=== PATIENT | male | born 1990 | race Caucasian/White ===

== ENCOUNTER 2023-06-16 18:04 | Inpatient (IN) | payer OTHER, SELFPAY ==
[2023-06-16 18:06] VITALS: BMI 26.8
[2023-06-16 18:15] VITALS: BP 151/70; PULSE 75; RESP 16; TEMP 36.6; O2SAT 97
[2023-06-16] MEDS: LORazepam 1 MG TABLET 2 MG PO (19:23)
[2023-06-16] MEDS: busPIRone HCl 10 MG TABLET PO (19:50)
[2023-06-16] MEDS: cloNIDine HCL 0.1 MG TABLET PO (19:50)
--- NOTE | 2023-06-16 23:50 | PC.NURSE ---
PT is a 32 year old male that arrived on this unit at 18:15 from via stretcher from [facility] and was placed on 5 min safety checks. Legal status: conditional voluntary. PT reports being discharged from [facility] 2 days ago and feels they did not help him. PT reports anxiety/depression and substance use of crack cocaine and alcohol.(TOX + for buprenorphine, fentanyl, cocaine and THC) PT began to feel suicidal related to many life stresses including a recent break up and his father being diagnosed with cancer. PT's housing is unstable as he goes back and forth between family and friends. PT reports daily use of crack cocaine as well as 3 pints of liquor per day for many months (withdrawal protocol ordered). PT does not have any psych providers. PT reports being on probation but would not elaborate on legal issues. PT reports medical hx of hypertension for which he does take medication daily. COVID NEG. All legals signed, tx plan completed, med rec completed, and admission orders obtained. Promote safety and initiate plan of care. Skin check completed by Juan Jose Rivera RN. No acute findings.
[2023-06-17] MEDS: traZODone HCL 50 MG TABLET PO ×3 (00:59→23:46)
[2023-06-17] MEDS: hydrOXYzine HCL 25 MG TABLET PO (00:59)
[2023-06-17] MEDS: Nicotine Polacrilex Lozenge 4 MG LOZENGE BUCCAL ×8 (00:59→23:46)
[2023-06-17 08:15] VITALS: BP 142/88; PULSE 74; RESP 16; TEMP 36.8; O2SAT 99
[2023-06-17] MEDS: cloNIDine HCL 0.1 MG TABLET PO ×2 (08:15→21:02)
[2023-06-17] MEDS: busPIRone HCl 10 MG TABLET PO ×2 (08:15→21:02)
[2023-06-17] MEDS: lisinopriL 5 MG TABLET PO (08:15)
[2023-06-17] MEDS: Nicotine 21 MG PATCH.TD24 TRANSDERMA (08:15)
[2023-06-17] MEDS: LORazepam 0.5 MG TABLET PO (08:32)
[2023-06-17 09:18] LABS: Alanine Aminotransferase 57 U/L (0-40); Albumin Level 3.8 g/dL (3.5-5.0); Alkaline Phosphatase 99 U/L (39-117); Anion Gap 13 (12-20); Aspartate Amino Transferase 45 U/L (5-37); Bilirubin Total 0.2 mg/dL (0.0-1.0); Blood Urea Nitrogen 11 mg/dL (9-16); Calcium 9.1 mg/dL (8.4-10.2); Carbon Dioxide 29 mmol/L (22-29); Chloride 103 mmol/L (96-108); Cholesterol 167 mg/dL (<200); Creatinine Clr Calc Pharmacy 124.7; Estimated Glomerular Filt Rate > 60; Glucose Fasting 91 mg/dL (60-99); HDL Cholesterol 39 mg/dL (>40); LDL Cholesterol Calculated 109 mg/dL (<100); Potassium 4.1 mmol/L (3.3-5.1); Sodium 141 mmol/L (135-145); Total Protein 6.7 g/dL (6.5-8.0); Triglycerides 95 mg/dL (<150)
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
[2023-06-17] MEDS: LORazepam 1 MG TABLET PO ×4 (09:47→23:46)
--- NOTE | 2023-06-17 11:14 | P.CONHOSP_ITS ---
History of Present Illness Data of Consult Service Date: 06/17/23 Primary Care Provider: Unknown Physician HPI Reason for consult: Admission H&P Pt is a 32-year-old male with a PMH significant for?HTN, WPW, polysubstance use disorder, and depression who is admitted to [facility] psychiatry unit for increasing depression and vague SI without specific plan. Medical consult for admission H&P. ? Patient has no acute medical complaints at this time. Denies chest pain/pressure, palpitations. No SOB. Denies fever, chills, nausea, vomiting, or abdominal pain. 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 Not currently on any medications for it, and states he has never experienced any symptoms from it. Admits to recent crack cocaine use and drinking 2.5 pints of alcohol daily. Currently denies any withdrawal symptoms. Labs reviewed, grossly unremarkable. Review of Systems 2 Review of Systems: Pt has no acute medical complaints at this time [facility] Social History Household Members: Family Housing: Other Do you presently have visiting nurse or other home services: No Patient Tobacco Use Status: Current everyday Tobacco user Tobacco use type: Cigarette Cigarette Packs Per Day: 2 Cigarettes Per Day: 40.0 Smoked in Last 30 Days: Yes e-Cigarette/Vaping Use: Never Used Patient Interested in Nicotine Replacement: Yes Patient Given Instructions on How to Stop Smoking: Yes Date Education Initiated: 06/16/23 Second Hand Smoke Exposure: No Use of substances other than those prescribed or required for medical reasons: Yes Substance Use Type: Crack/Cocaine and Marijuana Substance Use Frequency: Chronic Longstanding Last Used Substance: Just Prior to Admission Currently Displaying Signs/Symptoms of Drug Intoxication Withdrawal: No Any prior treatment program specific to substance use: No Have you been hit, kicked, punched, or otherwise hurt by someone within the past year? If so, by whom?: No Do you feel safe in your current relationship?: No Current Relationship Is there a partner from a previous relationship who is making you feel unsafe now?: No Are you made to feel afraid or neglected: No Advance Directives: No Advance Directives Information Provided: Yes Do you have thoughts of harming others: None Do you have a plan to hurt others: No Plan Recently lost weight without trying: Yes How much weight loss: 34pounds or more Eating poorly because of decreased appetite: No Nutrition screen score: 6 Nutrition Risks: No Nutritional Risk Poor oral hygiene: No Meds Allergies Allergy/AdvReac Type Severity Reaction Status Date / Time No Known Allergies Allergy Verified 06/16/23 15:50 Active Medications: Current Medications Acetaminophen (Acetaminophen 325 Mg Tablet) 650 mg PO Q6H PRN PRN Reason: Headache/Pain Mild Scale (1-3) Al Hydroxide/Mg Hydroxide (Magnesium Hydrox/Alum Hydrox 30 Ml Oral.Susp) 30 ml PO Q6H PRN PRN Reason: Heartburn/Nausea Buspirone HCl (Buspirone Hcl 10 Mg Tablet) 10 mg PO BID [facility] Last Admin: 06/17/23 08:15 Dose: 10 mg Clonidine HCl (Clonidine Hcl 0.1 Mg Tablet) 0.1 mg PO TID [facility]; Protocol Last Admin: 06/17/23 08:15 Dose: 0.1 mg Hydroxyzine HCl (Hydroxyzine Hcl 25 Mg Tablet) 25 mg PO Q6H PRN PRN Reason: Anxiety Last Admin: 06/17/23 00:59 Dose: 25 mg Lisinopril (Lisinopril 5 Mg Tablet) 5 mg PO DAILY [facility]; Protocol Last Admin: 06/17/23 08:15 Dose: 5 mg Lorazepam (Lorazepam 1 Mg Tablet) 1 mg PO Q2H PRN PRN Reason: CIWA 6-10 Last Admin: 06/17/23 09:47 Dose: 1 mg Lorazepam (Lorazepam 1 Mg Tablet) 2 mg PO Q2H PRN PRN Reason: CIWA 11 and above Magnesium Hydroxide (Milk Of Magnesia 30 Ml Oral.Susp) 30 ml PO DAILY PRN PRN Reason: Constipation Nicotine (Nicotine 21 Mg Patch.Td24) 21 mg TRANSDERMA DAILY [facility] Last Admin: 06/17/23 08:15 Dose: 21 mg Nicotine Polacrilex (Nicotine Polacrilex Lozenge 4 Mg Lozenge) 4 mg BUCCAL Q2H PRN PRN Reason: smoking craving Last Admin: 06/17/23 09:47 Dose: 4 mg Non-Formulary Medication (Atomoxetine) 40 mg PO DAILY [facility] Trazodone HCl (Trazodone Hcl 50 Mg Tablet) 50 mg PO BEDTIME MRX1 PRN PRN Reason: Insomnia Last Admin: 06/17/23 00:59 Dose: 50 mg Home Medications Medication Instructions Recorded Confirmed Last Taken Type atomoxetine 40 mg capsule 40 mg PO DAILY 06/16/23 06/16/23 06/16/23 09:00 History buprenorphine 300 mg/1.5 mL 300 mg subcut QMONTH 06/16/23 06/16/23 06/10/23 09:00 History solution,exten.rel.subcutaneous syringe (Sublocade) buspirone 10 mg tablet 10 mg PO BID 06/16/23 06/16/23 06/16/23 09:00 History 10 mg clonidine HCl 0.1 mg tablet 0.1 mg PO TID 06/16/23 06/16/23 06/16/23 15:00 History 0.1mg lisinopril 5 mg tablet 5 mg PO DAILY blood pressure 06/16/23 06/16/23 06/16/23 09:00 History 5 mg Physical Exam 2 Vital Signs and Narrative: Vital Signs: Last Vital Signs Temp 98.3 F 06/17/23 08:15 Pulse 74 06/17/23 08:15 Resp 16 06/17/23 08:15 BP 142/88 H 06/17/23 08:15 Pulse Ox 99 06/17/23 08:15 O2 Del Method Room Air 06/17/23 08:15 BMI result Body Mass Index 26.8 Constitutional: Alert, in no acute distress. Mental Status: Oriented to person, place and time. Eyes: Pupils are equal, round, and reactive to light. Ear, Nose, and Throat: Oropharynx clear, mucous membranes moist. Ears and nose without deformities. Trachea midline. Respiratory: Clear to auscultation bilaterally. No wheezing, rales, or rhonchi. Cardiovascular: S1, S2 regular. No murmurs, rubs, or gallops. Gastrointestinal: Abdomen soft, non-tender, non-distended. Normal bowel sounds. Neurologic: Cranial nerves II-XII are grossly intact bilaterally. No focal neurological deficits. Moves all extremities spontaneously. No tremors noted. Skin: No rashes or lesions noted. Musculoskeletal: No cyanosis or clubbing. Extremities: No edema. Psychiatric: Normal mood and affect. Results Labs 06/17/23 08:08 Labs: Laboratory Results - last 24 hr 06/17/23 08:08 Anion Gap 13 Estim Creat Clear Calc 124.7 Estimated GFR > 60 Fasting Glucose 91 Calcium 9.1 Total Bilirubin 0.2 AST 45 H ALT 57 H Alkaline Phosphatase 99 Total Protein 6.7 Albumin 3.8 Triglycerides 95 Cholesterol 167 LDL Cholesterol, Calc 109 H HDL Cholesterol 39 L Assessment and Plan (1) Medical clearance for psychiatric admission: Status: Acute Plan Pt is a 32-year-old male with a PMH significant for?HTN, WPW, polysubstance use disorder, and depression who is admitted to [facility] psychiatry unit for increasing depression and vague SI without specific plan. Medical consult for admission H&P. ? Mood disorder Plan as per psychiatry Polysubstance use disorder Recent crack cocaine use, drinks 2.5 pints of alcohol daily CIWA scale Ativan prn per protocol Plan as per psychiatry HTN Continue lisinopril WPW Pt reports being diagnosed at age 19 Denies being on meds, ever having symptoms No further workup or treatment indicated at this time F/U outpatient with PCP/cardiology Thank you for allowing us to participate in the care of this patient. Signing off at this time. Please let us know if there are any acute complaints or questions. Time Spent With Patient Time: Total time managing care of this patient today ____ minutes.
[2023-06-17] MEDS: Gabapentin 300 MG CAPSULE PO ×2 (16:21→21:01)
[2023-06-17] MEDS: LORazepam 1 MG TABLET 2 MG PO (16:22)
[2023-06-17 18:00] VITALS: BP 145/60; PULSE 87; TEMP 36.5; O2SAT 96
[2023-06-17 21:00] VITALS: BP 132/67; PULSE 88
[2023-06-18] MEDS: Nicotine Polacrilex Lozenge 4 MG LOZENGE BUCCAL ×6 (01:59→21:51)
[2023-06-18] MEDS: hydrOXYzine HCL 25 MG TABLET PO (02:00)
[2023-06-18 08:45] VITALS: BP 112/60; PULSE 71; RESP 18; TEMP 36.1; O2SAT 96
[2023-06-18] MEDS: Nicotine 21 MG PATCH.TD24 TRANSDERMA (08:47)
[2023-06-18] MEDS: Venlafaxine HCl ER 37.5 MG CAP.ER.24H PO (08:48)
[2023-06-18] MEDS: cloNIDine HCL 0.1 MG TABLET PO ×3 (08:48→20:09)
[2023-06-18] MEDS: LORazepam 1 MG TABLET PO ×5 (08:48→20:09)
[2023-06-18] MEDS: busPIRone HCl 10 MG TABLET PO ×2 (08:48→20:09)
[2023-06-18] MEDS: Gabapentin 300 MG CAPSULE PO ×3 (08:48→20:09)
[2023-06-18] MEDS: lisinopriL 5 MG TABLET PO (08:48)
[2023-06-18 14:50] VITALS: BP 129/60; PULSE 76
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
[2023-06-18 20:06] VITALS: BP 129/65; PULSE 76; TEMP 36.4
[2023-06-18] MEDS: traZODone HCL 50 MG TABLET PO ×2 (20:09→21:51)
[2023-06-19 08:55] VITALS: BP 105/60; PULSE 63; RESP 18; TEMP 36.2; O2SAT 95
[2023-06-19] MEDS: busPIRone HCl 10 MG TABLET PO ×2 (08:59→19:59)
[2023-06-19] MEDS: Venlafaxine HCl ER 37.5 MG CAP.ER.24H PO (08:59)
[2023-06-19] MEDS: Gabapentin 300 MG CAPSULE PO ×3 (08:59→19:59)
[2023-06-19] MEDS: Nicotine 21 MG PATCH.TD24 TRANSDERMA (08:59)
[2023-06-19] MEDS: LORazepam 1 MG TABLET PO ×4 (08:59→19:59)
[2023-06-19] MEDS: lisinopriL 5 MG TABLET PO (08:59)
[2023-06-19] MEDS: cloNIDine HCL 0.1 MG TABLET PO ×3 (09:04→19:58)
--- NOTE | 2023-06-19 10:40 | P.PNPSI_ITS ---
Subjective Subjective Date of Service: 06/19/23 Reason For Visit: Depression Interim History: pt tolerating effexor without side effects; CIWA scale and ativan taper benefitting- no significant WD smptoms. He is eating and attending to ADLs Worried about legal; no SI Medication Compliance: Yes Side effects from medications: No Attending Groups: Intermittent Review of Systems Acute medical concerns: No Medical Review of Systems: unchanged Review of Systems Review of Systems Pt has no acute medical complaints at this time Mental Status Exam Mental Status Exam Narrative: Pt is alert and oriented; behavior is cooperative, and calm, resting in bed; patient is not in distress; dressed in casual attire, multiple tattoos on his arms, cleanly trimmed vernon and hair and adequate hygiene; mood is described as depressed and affect congruent, downcast; eye contact appropriate; Speech is normal rate, volume and prosody and not pressured; psychomotor retardation present; thought process is organized and goal directed; Thought content is on tx; otherwise pertinent to relevant topics and without any delusional content, paranoid ideations or grandiosity; intermittent passive SI; no HI.. There is no evidence of perceptual disturbance and denies AVH. Patients insight and judgment appear impaired Diagnostics Vital Signs (24Hr): Vital Signs - 24 hr 06/18/23 14:50 06/18/23 20:06 06/19/23 08:55 Temperature 97.6 F 97.1 F Pulse Rate 76 76 63 Respiratory Rate 18 Blood Pressure 129/60 129/65 105/60 Pulse Oximetry 95 Oxygen Delivery Method Room Air BMI result Body Mass Index 26.8 Labs 06/17/23 08:08 Medications Medications Current Medications Acetaminophen (Acetaminophen 325 Mg Tablet) 650 mg PO Q6H PRN PRN Reason: Headache/Pain Mild Scale (1-3) Al Hydroxide/Mg Hydroxide (Magnesium Hydrox/Alum Hydrox 30 Ml Oral.Susp) 30 ml PO Q6H PRN PRN Reason: Heartburn/Nausea Buspirone HCl (Buspirone Hcl 10 Mg Tablet) 10 mg PO BID COUNTS INCLUDE 234 BEDS AT THE [facility] Last Admin: 06/19/23 08:59 Dose: 10 mg Clonidine HCl (Clonidine Hcl 0.1 Mg Tablet) 0.1 mg PO TID COUNTS INCLUDE 234 BEDS AT THE [facility]; Protocol Last Admin: 06/19/23 09:04 Dose: 0.1 mg Gabapentin (Gabapentin 300 Mg Capsule) 300 mg PO TID COUNTS INCLUDE 234 BEDS AT THE [facility] Last Admin: 06/19/23 08:59 Dose: 300 mg Hydroxyzine HCl (Hydroxyzine Hcl 25 Mg Tablet) 25 mg PO Q6H PRN PRN Reason: Anxiety Last Admin: 06/18/23 02:00 Dose: 25 mg Lisinopril (Lisinopril 5 Mg Tablet) 5 mg PO DAILY COUNTS INCLUDE 234 BEDS AT THE [facility]; Protocol Last Admin: 06/19/23 08:59 Dose: 5 mg Lorazepam (Lorazepam 1 Mg Tablet) 1 mg PO Q2H PRN PRN Reason: CIWA 6-10 Last Admin: 06/18/23 18:00 Dose: 1 mg Lorazepam (Lorazepam 1 Mg Tablet) 2 mg PO Q2H PRN PRN Reason: CIWA 11 and above Last Admin: 06/17/23 16:22 Dose: 2 mg Lorazepam (Lorazepam 1 Mg Tablet) 1 mg PO TID COUNTS INCLUDE 234 BEDS AT THE [facility] Stop: 06/19/23 23:00 Last Admin: 06/19/23 08:59 Dose: 1 mg Lorazepam (Lorazepam 1 Mg Tablet) 1 mg PO BID COUNTS INCLUDE 234 BEDS AT THE [facility] Stop: 06/21/23 23:00 Magnesium Hydroxide (Milk Of Magnesia 30 Ml Oral.Susp) 30 ml PO DAILY PRN PRN Reason: Constipation Nicotine (Nicotine 21 Mg Patch.Td24) 21 mg TRANSDERMA DAILY COUNTS INCLUDE 234 BEDS AT THE [facility] Last Admin: 06/19/23 08:59 Dose: 21 mg Nicotine Polacrilex (Nicotine Polacrilex Lozenge 4 Mg Lozenge) 4 mg BUCCAL Q2H PRN PRN Reason: smoking craving Last Admin: 06/18/23 21:51 Dose: 4 mg Trazodone HCl (Trazodone Hcl 50 Mg Tablet) 50 mg PO BEDTIME MRX1 PRN PRN Reason: Insomnia Last Admin: 06/18/23 21:51 Dose: 50 mg Venlafaxine HCl (Venlafaxine Hcl Er 37.5 Mg Cap.Er.24h) 37.5 mg PO DAILY COUNTS INCLUDE 234 BEDS AT THE [facility] Last Admin: 06/19/23 08:59 Dose: 37.5 mg Allergies Allergies Allergy/AdvReac Type Severity Reaction Status Date / Time No Known Allergies Allergy Verified 06/16/23 15:50 Assessment & Plan Assessment & Plan (1) MDD (major depressive disorder), recurrent severe, without psychosis: Status: Acute Code(s): F33.2 - Major depressive disorder, recurrent severe without psychotic features (2) PTSD (post-traumatic stress disorder): Status: Acute Code(s): F43.10 - Post-traumatic stress disorder, unspecified (3) Alcohol dependence: Status: Acute Code(s): F10.20 - Alcohol dependence, uncomplicated (4) Cocaine use disorder: Status: Acute Code(s): F14.10 - Cocaine abuse, uncomplicated Plan Patient is a 32-year-old male with history of depression, anxiety PTSD, alcohol and cocaine dependence, HTN, WPW (by history) recently discharged from [facility], who self presents for depression with SI and the face of no medication and ongoing chronic severe substance abuse. -patient has had some medication trials even during periods of sobriety, while in [facility] and says little has worked; however when he was out of [facility] and sober for about 4 months, he said his mood was good and anxiety low -seems that much of his depression and anxiety is compounded by substance abuse; though sober and [facility], on going, exacerbated and significant PTSD symptoms may have proved a barrier to medications effectiveness -will detox from alcohol; will start on venlafaxine (reviewed risks/side effects which patient understands and agrees to). May consider Lamictal. For full recovery patient needs sobriety in therapy and removal from gang affiliation Plan: CV Q 15 minute checks CIWA with p.r.n. Ativan Scheduled Ativan with build in taper to help with withdrawal Scheduled gabapentin 300 mg t.i.d.; will consider whether not to taper or continue if helps with anxiety Continue clonidine 0.1 mg t.i.d. Continue BuSpar 10 mg b.i.d. Continue lisinopril 5 mg daily START venlafaxine 37.5 mg daily for depression; will titrate Will consider Lamictal since can help with both PTSD, anxiety and depression; patient says that he is consistent with taking medications as they are prescribed DC atomoxetine; patient started at [facility] currently does not want Seems that patient Recently received sublaCade 300 mg on 06/10 Obtain collateral; dispo planning 06/18 continue above treatmetn plan 06/19 continue treatmetn plan consider increase effexor Patient educated on: diagnosis, medication risk/benefits and therapeutic strategies Informed Consent: further education needed Reason for continued inpatient stay Substantial Risk for: harm to self, inability to function and rapid decompensation Time Spent With Patient Time: Total time managing care of this patient today ____ minutes.
[2023-06-19] MEDS: Nicotine Polacrilex Lozenge 4 MG LOZENGE BUCCAL ×3 (15:05→22:10)
[2023-06-19 19:49] VITALS: BP 144/70; PULSE 78; TEMP 36.1
[2023-06-19] MEDS: traZODone HCL 50 MG TABLET PO ×2 (19:59→22:10)
[2023-06-20] MEDS: LORazepam 1 MG TABLET PO ×9 (01:22→20:17)
[2023-06-20] MEDS: Nicotine Polacrilex Lozenge 4 MG LOZENGE BUCCAL ×3 (01:22→08:57)
[2023-06-20] MEDS: cloNIDine HCL 0.1 MG TABLET PO ×3 (08:38→19:56)
[2023-06-20] MEDS: Gabapentin 300 MG CAPSULE PO ×3 (08:38→19:56)
[2023-06-20] MEDS: Venlafaxine HCl ER 37.5 MG CAP.ER.24H PO (08:38)
[2023-06-20] MEDS: Nicotine 21 MG PATCH.TD24 TRANSDERMA (08:38)
[2023-06-20] MEDS: lisinopriL 5 MG TABLET PO (08:38)
[2023-06-20] MEDS: busPIRone HCl 10 MG TABLET PO ×2 (08:38→19:56)
[2023-06-20 08:47] VITALS: BP 113/52; PULSE 62; RESP 16; TEMP 36.2; O2SAT 95
--- NOTE | 2023-06-20 09:29 | P.PNPSI_ITS ---
Subjective Subjective Date of Service: 06/20/23 Reason For Visit: Depression Subjective Notes: Conditional Voluntary Interim History: Reviewed in team and . Patient keeping to self guarded, reports feeling anxious and depressed today. Pt stated, I'm still having some withdrawal symptoms but it's not too bad . Denies SI/HI/VH/AH. He reports he would like to attend PHP after discharge. flying squad worker notified. Medication Compliance: Yes Side effects from medications: No Attending Groups: No Review of Systems Constitutional: Reports as per HPI Eyes: Reports as per HPI Reports as per HPI Cardiovascular: Reports as per HPI Respiratory: Reports as per HPI Gastrointestinal: Reports as per HPI Genitourinary: Reports as per HPI Musculoskeletal: Reports as per HPI Skin/Breast: Reports as per HPI Reports as per HPI Psychiatric: Reports as per HPI Endocrine: Reports as per HPI Hematologic/Lymphatic: Reports as per HPI Allergic/Immunologic: Reports as per HPI Mental Status Exam Mental Status Exam Narrative: Pt is alert and oriented; behavior is guarded and calm; dressed in casual attire; mood is described as anxious and depressed ; eye contact appropriate; Speech is normal rate, volume and prosody and not pressured; no psychomotor agitation/retardation present; thought process is organized and goal directed; Thought content is on tx; otherwise pertinent to relevant topics and without any delusional content, paranoid ideations or grandiosity; denies SI/HI. There is no evidence of perceptual disturbance. Patients insight and judgment are poor. Diagnostics Vital Signs (24Hr): Vital Signs - 24 hr 06/19/23 19:49 06/20/23 08:47 Temperature 96.9 F 97.2 F Pulse Rate 78 62 Respiratory Rate 16 Blood Pressure 144/70 H 113/52 L Pulse Oximetry 95 Oxygen Delivery Method Room Air BMI result Body Mass Index 26.8 Labs 06/17/23 08:08 Medications Medications Current Medications Acetaminophen (Acetaminophen 325 Mg Tablet) 650 mg PO Q6H PRN PRN Reason: Headache/Pain Mild Scale (1-3) Al Hydroxide/Mg Hydroxide (Magnesium Hydrox/Alum Hydrox 30 Ml Oral.Susp) 30 ml PO Q6H PRN PRN Reason: Heartburn/Nausea Buspirone HCl (Buspirone Hcl 10 Mg Tablet) 10 mg PO BID [facility] Last Admin: 06/20/23 08:38 Dose: 10 mg Clonidine HCl (Clonidine Hcl 0.1 Mg Tablet) 0.1 mg PO TID [facility]; Protocol Last Admin: 06/20/23 08:38 Dose: 0.1 mg Gabapentin (Gabapentin 300 Mg Capsule) 300 mg PO TID [facility] Last Admin: 06/20/23 08:38 Dose: 300 mg Hydroxyzine HCl (Hydroxyzine Hcl 25 Mg Tablet) 25 mg PO Q6H PRN PRN Reason: Anxiety Last Admin: 06/18/23 02:00 Dose: 25 mg Lisinopril (Lisinopril 5 Mg Tablet) 5 mg PO DAILY [facility]; Protocol Last Admin: 06/20/23 08:38 Dose: 5 mg Lorazepam (Lorazepam 1 Mg Tablet) 1 mg PO Q2H PRN PRN Reason: CIWA 6-10 Last Admin: 06/20/23 04:11 Dose: 1 mg Lorazepam (Lorazepam 1 Mg Tablet) 2 mg PO Q2H PRN PRN Reason: CIWA 11 and above Last Admin: 06/17/23 16:22 Dose: 2 mg Lorazepam (Lorazepam 1 Mg Tablet) 1 mg PO BID [facility] Stop: 06/21/23 23:00 Last Admin: 06/20/23 08:38 Dose: 1 mg Magnesium Hydroxide (Milk Of Magnesia 30 Ml Oral.Susp) 30 ml PO DAILY PRN PRN Reason: Constipation Nicotine (Nicotine 21 Mg Patch.Td24) 21 mg TRANSDERMA DAILY [facility] Last Admin: 06/20/23 08:38 Dose: 21 mg Nicotine Polacrilex (Nicotine Polacrilex Lozenge 4 Mg Lozenge) 4 mg BUCCAL Q2H PRN PRN Reason: smoking craving Last Admin: 06/20/23 08:57 Dose: 4 mg Trazodone HCl (Trazodone Hcl 50 Mg Tablet) 50 mg PO BEDTIME MRX1 PRN PRN Reason: Insomnia Last Admin: 06/19/23 22:10 Dose: 50 mg Venlafaxine HCl (Venlafaxine Hcl Er 37.5 Mg Cap.Er.24h) 37.5 mg PO DAILY [facility] Last Admin: 06/20/23 08:38 Dose: 37.5 mg Allergies Allergies Allergy/AdvReac Type Severity Reaction Status Date / Time No Known Allergies Allergy Verified 06/16/23 15:50 Assessment & Plan Assessment & Plan (1) MDD (major depressive disorder), recurrent severe, without psychosis: Status: Acute Code(s): F33.2 - Major depressive disorder, recurrent severe without psychotic features (2) PTSD (post-traumatic stress disorder): Status: Acute Code(s): F43.10 - Post-traumatic stress disorder, unspecified (3) Alcohol dependence: Status: Acute Code(s): F10.20 - Alcohol dependence, uncomplicated (4) Cocaine use disorder: Status: Acute Code(s): F14.10 - Cocaine abuse, uncomplicated Plan Patient is a 32-year-old male with history of depression, anxiety PTSD, alcohol and cocaine dependence, HTN, WPW (by history) recently discharged from [facility], who self presents for depression with SI and the face of no medication and ongoing chronic severe substance abuse. -patient has had some medication trials even during periods of sobriety, while in [facility] and says little has worked; however when he was out of [facility] and sober for about 4 months, he said his mood was good and anxiety low -seems that much of his depression and anxiety is compounded by substance abuse; though sober and [facility], on going, exacerbated and significant PTSD symptoms may have proved a barrier to medications effectiveness -will detox from alcohol; will start on venlafaxine (reviewed risks/side effects which patient understands and agrees to). May consider Lamictal. For full recovery patient needs sobriety in therapy and removal from gang affiliation Plan: CV Q 15 minute checks CIWA with p.r.n. Ativan Scheduled Ativan with build in taper to help with withdrawal Scheduled gabapentin 300 mg t.i.d.; will consider whether not to taper or continue if helps with anxiety Continue clonidine 0.1 mg t.i.d. Continue BuSpar 10 mg b.i.d. Continue lisinopril 5 mg daily START venlafaxine 37.5 mg daily for depression; will titrate Will consider Lamictal since can help with both PTSD, anxiety and depression; patient says that he is consistent with taking medications as they are prescribed DC atomoxetine; patient started at [facility] currently does not want Seems that patient Recently received sublaCade 300 mg on 06/10 Obtain collateral; dispo planning 06/18 continue above treatmetn plan; consider increase effexor 06/19 06/20: Patient keeping to self guarded, reports feeling anxious and depressed today. Pt stated, I'm still having some withdrawal symptoms but it's not too bad . Denies SI/HI/VH/AH. He reports he would like to attend PHP after discharge. flying squad worker notified. Continue current tx plan. Patient educated on: diagnosis, medication risk/benefits and substance abuse Informed Consent: understands Reason for continued inpatient stay Substantial Risk for: med/psych decompensation Time Spent With Patient Time: Total time managing care of this patient today _30___ minutes.
[2023-06-20] MEDS: Nicotine Polacrilex 2 MG GUM 4 MG BUCCAL ×6 (11:49→23:39)
[2023-06-20 18:00] VITALS: BP 108/51; PULSE 84; TEMP 36.7; O2SAT 99
[2023-06-20] MEDS: traZODone HCL 50 MG TABLET PO ×2 (21:36→22:45)
[2023-06-20] MEDS: hydrOXYzine HCL 25 MG TABLET PO (22:45)
[2023-06-20] MEDS: LORazepam 1 MG TABLET 2 MG PO (23:39)
[2023-06-21] MEDS: Nicotine Polacrilex 2 MG GUM 4 MG BUCCAL ×9 (02:00→22:46)
[2023-06-21] MEDS: LORazepam 1 MG TABLET PO ×5 (04:02→22:46)
[2023-06-21] MEDS: LORazepam 1 MG TABLET 2 MG PO ×2 (07:00→11:53)
[2023-06-21 07:40] VITALS: BP 111/65; PULSE 72; RESP 18; TEMP 35.9; O2SAT 96
[2023-06-21] MEDS: Gabapentin 300 MG CAPSULE PO ×3 (08:39→19:49)
[2023-06-21] MEDS: cloNIDine HCL 0.1 MG TABLET PO ×3 (08:39→19:49)
[2023-06-21] MEDS: Venlafaxine HCl ER 37.5 MG CAP.ER.24H PO (08:40)
[2023-06-21] MEDS: lisinopriL 5 MG TABLET PO (08:40)
[2023-06-21] MEDS: busPIRone HCl 10 MG TABLET PO ×2 (08:40→19:49)
[2023-06-21] MEDS: Nicotine 21 MG PATCH.TD24 TRANSDERMA (08:40)
[2023-06-21 14:00] VITALS: BP 125/68; PULSE 87
[2023-06-21] MEDS: hydrOXYzine HCL 25 MG TABLET PO (15:39)
--- NOTE | 2023-06-21 16:33 | P.PNPSI_ITS ---
Subjective Subjective Date of Service: 06/21/23 Reason For Visit: Depression Interim History: Pt seen, discussed with team. Plan of care reviewed. Team reports pt is visable on the unit Scoring high CIWA values on day 6 and is up most of the night. Plans to live with his father and attend PHP upon discharge. Med review with pt who is seeking to keep gabapentin, manage anxiety, and utilize PHP, and OP therapy and medication referrals Reports regime to be useful at this time. Medication Compliance: Yes Side effects from medications: No Attending Groups: Intermittent Review of Systems Acute medical concerns: No Mental Status Exam Mental Status Exam Patient Appearance: Appropriate Patient Orientation: Person, Place, Time and Situation Level of Consciousness: Alert Patient Behavior: Talkative and Good Eye Contact Mood Description: Anxious and Flat Affect Description: Flat Patient Cognition Impaired: No Ability to Follow Directions: Fair Speech Pattern: Spontaneous Speech Memory Description: Episodic Impaired Hallucinations: None Delusions: Not Present Thought Process: Goal Oriented Thought Content: positive for Circumstantial and positive for Goal Oriented Depressive Symptoms: Increased Anxiety Judgement: Good Diagnostics Vital Signs (24Hr): Vital Signs - 24 hr 06/20/23 18:00 06/21/23 07:40 06/21/23 14:00 Temperature 98.1 F 96.7 F L Pulse Rate 84 72 87 Respiratory Rate 18 Blood Pressure 108/51 L 111/65 125/68 Pulse Oximetry 99 96 Oxygen Delivery Method Room Air Room Air BMI result Body Mass Index 26.8 Labs 06/17/23 08:08 Medications Medications Current Medications Acetaminophen (Acetaminophen 325 Mg Tablet) 650 mg PO Q6H PRN PRN Reason: Headache/Pain Mild Scale (1-3) Al Hydroxide/Mg Hydroxide (Magnesium Hydrox/Alum Hydrox 30 Ml Oral.Susp) 30 ml PO Q6H PRN PRN Reason: Heartburn/Nausea Buspirone HCl (Buspirone Hcl 10 Mg Tablet) 10 mg PO BID [facility] Last Admin: 06/21/23 08:40 Dose: 10 mg Clonidine HCl (Clonidine Hcl 0.1 Mg Tablet) 0.1 mg PO TID [facility]; Protocol Last Admin: 06/21/23 14:12 Dose: 0.1 mg Gabapentin (Gabapentin 300 Mg Capsule) 300 mg PO TID [facility] Last Admin: 06/21/23 14:12 Dose: 300 mg Hydroxyzine HCl (Hydroxyzine Hcl 25 Mg Tablet) 25 mg PO Q6H PRN PRN Reason: Anxiety Last Admin: 06/21/23 15:39 Dose: 25 mg Lisinopril (Lisinopril 5 Mg Tablet) 5 mg PO DAILY [facility]; Protocol Last Admin: 06/21/23 08:40 Dose: 5 mg Lorazepam (Lorazepam 1 Mg Tablet) 1 mg PO Q2H PRN PRN Reason: CIWA 6-10 Last Admin: 06/21/23 15:40 Dose: 1 mg Lorazepam (Lorazepam 1 Mg Tablet) 2 mg PO Q2H PRN PRN Reason: CIWA 11 and above Last Admin: 06/21/23 11:53 Dose: 2 mg Lorazepam (Lorazepam 1 Mg Tablet) 1 mg PO BID [facility] Stop: 06/21/23 23:00 Last Admin: 06/21/23 08:40 Dose: 1 mg Magnesium Hydroxide (Milk Of Magnesia 30 Ml Oral.Susp) 30 ml PO DAILY PRN PRN Reason: Constipation Nicotine (Nicotine 21 Mg Patch.Td24) 21 mg TRANSDERMA DAILY [facility] Last Admin: 06/21/23 08:40 Dose: 21 mg Nicotine Polacrilex (Nicotine Polacrilex 2 Mg Gum) 4 mg BUCCAL Q2H PRN PRN Reason: Nicotine Cravings Last Admin: 06/21/23 14:59 Dose: 4 mg Trazodone HCl (Trazodone Hcl 50 Mg Tablet) 50 mg PO BEDTIME MRX1 PRN PRN Reason: Insomnia Last Admin: 06/20/23 22:45 Dose: 50 mg Venlafaxine HCl (Venlafaxine Hcl Er 37.5 Mg Cap.Er.24h) 37.5 mg PO DAILY [facility] Last Admin: 06/21/23 08:40 Dose: 37.5 mg Allergies Allergies Allergy/AdvReac Type Severity Reaction Status Date / Time No Known Allergies Allergy Verified 06/16/23 15:50 Assessment & Plan Assessment & Plan (1) MDD (major depressive disorder), recurrent severe, without psychosis: Status: Acute Code(s): F33.2 - Major depressive disorder, recurrent severe without psychotic features (2) PTSD (post-traumatic stress disorder): Status: Acute Code(s): F43.10 - Post-traumatic stress disorder, unspecified (3) Alcohol dependence: Status: Acute Code(s): F10.20 - Alcohol dependence, uncomplicated (4) Cocaine use disorder: Status: Acute Code(s): F14.10 - Cocaine abuse, uncomplicated Plan Patient is a 32-year-old male with history of depression, anxiety PTSD, alcohol and cocaine dependence, HTN, WPW (by history) recently discharged from [facility], who self presents for depression with SI and the face of no medication and ongoing chronic severe substance abuse. 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 May consider Lamictal. For full recovery patient needs sobriety in therapy and removal from gang affiliation Plan: CV Q 15 minute checks CIWA with p.r.n. Ativan Scheduled Ativan with build in taper to help with withdrawal Scheduled gabapentin 300 mg t.i.d.; will consider whether not to taper or continue if helps with anxiety Continue clonidine 0.1 mg t.i.d. Continue BuSpar 10 mg b.i.d. Continue lisinopril 5 mg daily START venlafaxine 37.5 mg daily for depression; will titrate Will consider Lamictal since can help with both PTSD, anxiety and depression; patient says that he is consistent with taking medications as they are prescribed DC atomoxetine; patient started at [facility] currently does not want Seems that patient Recently received sublaCade 300 mg on 06/10 Obtain collateral; dispo planning 06/18 continue above treatmetn plan; consider increase effexor 06/19 06/20: Patient keeping to self guarded, reports feeling anxious and depressed today. Pt stated, I'm still having some withdrawal symptoms but it's not too bad . Denies SI/HI/VH/AH. He reports he would like to attend PHP after discharge. social worker delinquency prevention notified. Continue current tx plan. 06/21 Continue current plan of care Patient educated on: medication risk/benefits and therapeutic strategies Informed Consent: understands Reason for continued inpatient stay Substantial Risk for: rapid decompensation Time Spent With Patient Time: Total time managing care of this patient today ____ minutes.
[2023-06-21 18:00] VITALS: BP 115/59; PULSE 84; RESP 16; TEMP 36.1
[2023-06-21] MEDS: traZODone HCL 50 MG TABLET PO ×2 (19:49→22:45)
[2023-06-22] MEDS: Nicotine Polacrilex 2 MG GUM 4 MG BUCCAL ×6 (01:29→20:11)
[2023-06-22] MEDS: LORazepam 1 MG TABLET PO ×2 (01:29→06:38)
[2023-06-22 07:50] VITALS: BP 139/77; PULSE 89; RESP 18; TEMP 36.2; O2SAT 97
[2023-06-22] MEDS: Venlafaxine HCl ER 37.5 MG CAP.ER.24H PO (08:24)
[2023-06-22] MEDS: cloNIDine HCL 0.1 MG TABLET PO ×3 (08:24→20:11)
[2023-06-22] MEDS: Gabapentin 300 MG CAPSULE PO ×3 (08:24→20:11)
[2023-06-22] MEDS: lisinopriL 5 MG TABLET PO (08:24)
[2023-06-22] MEDS: busPIRone HCl 10 MG TABLET PO ×2 (08:25→20:11)
[2023-06-22] MEDS: Nicotine 21 MG PATCH.TD24 TRANSDERMA (08:25)
[2023-06-22 14:05] VITALS: BP 122/59; PULSE 67
--- NOTE | 2023-06-22 17:01 | HO.PSYCHPN ---
Subjective Subjective Date of Service: 06/22/23 Reason For Visit: Depression Subjective Notes: Conditional Voluntary Healthcare Proxy: No Guardianship: No Medical Problems Affecting Mental Status: No Interim History: Pt seen,discussed with team. Plan of care reviewed. Prepared to begin Lorazepam tapering Will offer 1.5 mg 06/23; 1 mg 06/24, 0.5 mg 06/25 Will titrate Venlafaxine as well. Pt continues to have interest in PHP and OP referrals. Reports sleep to be difficult, sleeps for an hour then eats. Will trial Seroquel Medication Compliance: Yes Side effects from medications: No Attending Groups: Intermittent Review of Systems Acute medical concerns: No Mental Status Exam Mental Status Exam Patient Appearance: Appropriate Patient Orientation: Person, Place, Time and Situation Level of Consciousness: Alert Patient Behavior: Talkative and Good Eye Contact Mood Description: Anxious and Flat Affect Description: Flat Patient Cognition Impaired: No Ability to Follow Directions: Fair Speech Pattern: Spontaneous Speech Memory Description: Episodic Impaired Hallucinations: None Delusions: Not Present Thought Process: Goal Oriented Thought Content: positive for Circumstantial and positive for Goal Oriented Depressive Symptoms: Increased Anxiety Judgement: Good Diagnostics Vital Signs (24Hr): Vital Signs - 24 hr 06/21/23 18:00 06/22/23 07:50 06/22/23 14:05 Temperature 97 F 97.1 F Pulse Rate 84 89 67 Respiratory Rate 16 18 Blood Pressure 115/59 L 139/77 122/59 L Pulse Oximetry 97 Oxygen Delivery Method Room Air BMI result Body Mass Index 26.8 Labs 06/17/23 08:08 Medications Medications Current Medications Acetaminophen (Acetaminophen 325 Mg Tablet) 650 mg PO Q6H PRN PRN Reason: Headache/Pain Mild Scale (1-3) Al Hydroxide/Mg Hydroxide (Magnesium Hydrox/Alum Hydrox 30 Ml Oral.Susp) 30 ml PO Q6H PRN PRN Reason: Heartburn/Nausea Buspirone HCl (Buspirone Hcl 10 Mg Tablet) 10 mg PO BID [facility] Last Admin: 06/22/23 08:25 Dose: 10 mg Clonidine HCl (Clonidine Hcl 0.1 Mg Tablet) 0.1 mg PO TID [facility]; Protocol Last Admin: 06/22/23 14:07 Dose: 0.1 mg Gabapentin (Gabapentin 300 Mg Capsule) 300 mg PO TID [facility] Last Admin: 06/22/23 14:07 Dose: 300 mg Hydroxyzine HCl (Hydroxyzine Hcl 25 Mg Tablet) 25 mg PO Q6H PRN PRN Reason: Anxiety Last Admin: 06/21/23 15:39 Dose: 25 mg Lisinopril (Lisinopril 5 Mg Tablet) 5 mg PO DAILY [facility]; Protocol Last Admin: 06/22/23 08:24 Dose: 5 mg Lorazepam (Lorazepam 0.5 Mg Tablet) 0.5 mg PO Q8H PRN PRN Reason: Anxiety Stop: 06/24/23 00:00 Lorazepam (Lorazepam 0.5 Mg Tablet) 0.5 mg PO Q12H PRN PRN Reason: Anxiety Stop: 06/25/23 00:00 Lorazepam (Lorazepam 0.5 Mg Tablet) 0.5 mg PO DAILY PRN PRN Reason: Anxiety Magnesium Hydroxide (Milk Of Magnesia 30 Ml Oral.Susp) 30 ml PO DAILY PRN PRN Reason: Constipation Nicotine (Nicotine 21 Mg Patch.Td24) 21 mg TRANSDERMA DAILY [facility] Last Admin: 06/22/23 08:25 Dose: 21 mg Nicotine Polacrilex (Nicotine Polacrilex 2 Mg Gum) 4 mg BUCCAL Q2H PRN PRN Reason: Nicotine Cravings Last Admin: 06/22/23 15:46 Dose: 4 mg Trazodone HCl (Trazodone Hcl 50 Mg Tablet) 50 mg PO BEDTIME MRX1 PRN PRN Reason: Insomnia Last Admin: 06/21/23 22:45 Dose: 50 mg Venlafaxine HCl (Venlafaxine Hcl Er 37.5 Mg Cap.Er.24h) 37.5 mg PO DAILY [facility] Last Admin: 06/22/23 08:24 Dose: 37.5 mg Allergies Allergies Allergy/AdvReac Type Severity Reaction Status Date / Time No Known Allergies Allergy Verified 06/16/23 15:50 Assessment & Plan Assessment & Plan (1) MDD (major depressive disorder), recurrent severe, without psychosis: Status: Acute Code(s): F33.2 - Major depressive disorder, recurrent severe without psychotic features (2) PTSD (post-traumatic stress disorder): Status: Acute Code(s): F43.10 - Post-traumatic stress disorder, unspecified (3) Alcohol dependence: Status: Acute Code(s): F10.20 - Alcohol dependence, uncomplicated (4) Cocaine use disorder: Status: Acute Code(s): F14.10 - Cocaine abuse, uncomplicated Plan Patient is a 32-year-old male with history of depression, anxiety PTSD, alcohol and cocaine dependence, HTN, WPW (by history) recently discharged from [facility], who self presents for depression with SI and the face of no medication and ongoing chronic severe substance abuse. -patient has had some medication trials even during periods of sobriety, while in group home and says little has worked; however when he was out of group home and sober for about 4 months, he said his mood was good and anxiety low -seems that much of his depression and anxiety is compounded by substance abuse; though sober and group home, on going, exacerbated and significant PTSD symptoms may have proved a barrier to medications effectiveness -will detox from alcohol; will start on venlafaxine (reviewed risks/side effects which patient understands and agrees to). May consider Lamictal. For full recovery patient needs sobriety in therapy and removal from gang affiliation Plan: CV Q 15 minute checks CIWA with p.r.n. Ativan Scheduled Ativan with build in taper to help with withdrawal Scheduled gabapentin 300 mg t.i.d.; will consider whether not to taper or continue if helps with anxiety Continue clonidine 0.1 mg t.i.d. Continue BuSpar 10 mg b.i.d. Continue lisinopril 5 mg daily START venlafaxine 37.5 mg daily for depression; will titrate Will consider Lamictal since can help with both PTSD, anxiety and depression; patient says that he is consistent with taking medications as they are prescribed DC atomoxetine; patient started at [facility] currently does not want Seems that patient Recently received sublaCade 300 mg on 06/10 Obtain collateral; dispo planning 06/18 continue above treatmetn plan; consider increase effexor 06/19 06/20: Patient keeping to self guarded, reports feeling anxious and depressed today. Pt stated, I'm still having some withdrawal symptoms but it's not too bad . Denies SI/HI/VH/AH. He reports he would like to attend PHP after discharge. direct service worker notified. Continue current tx plan. 06/22/23 Increase Venlafaxine to 75 mg daily Seroquel 75 mg HS prn insomnia B12,Folate,TSH, A1C, CBCD, EKG Ativan tapering, 1.5 mg 10/19, 1 mg 06/24, 0.5 mg 06/25 Patient educated on: medication risk/benefits Informed Consent: understands Reason for continued inpatient stay Substantial Risk for: rapid decompensation Time Spent With Patient Time: Total time managing care of this patient today ____ minutes.
[2023-06-22 20:07] VITALS: BP 116/56; PULSE 71; TEMP 36.4
[2023-06-22] MEDS: traZODone HCL 50 MG TABLET PO ×2 (20:11→22:07)
[2023-06-23 07:00] VITALS: BMI 34.7
--- NOTE | 2023-06-23 07:00 | ECG_ITS ---
Test Reason : qt check Blood Pressure : / mmHG Vent. Rate : 066 BPM Atrial Rate : 066 BPM P-R Int : 154 ms QRS Dur : 100 ms QT Int : 378 ms P-R-T Axes : 069 062 026 degrees QTc Int : 396 ms Normal sinus rhythm Normal ECG No previous ECGs available Referred By: Pamela Borja Electronically Signed By:LORENZA COTTON MD
[2023-06-23 08:33] LABS: MANUAL DIFF FLAG NO
[2023-06-23 08:35] LABS: Basophils Absolute Auto 0.1 X10*3/uL (0.0-0.2); Basophils Percent Auto 1.2 % (0-2); Eosinophils Absolute Auto 0.5 X10*3/uL (0.0-0.4); Eosinophils Percent Auto 7.3 % (0-4); Hematocrit 45.4 % (42.0-52.0); Hemoglobin 14.6 g/dl (14.0-18.0); Imm Gran Abs Auto 0.04 X10*3/uL (0.00-0.03); Imm Gran Pct Auto 0.6 % (0.0-0.4); Lymphocytes Absolute Auto 1.6 X10*3/uL (1.2-4.9); Lymphocytes Percent Auto 22.5 % (20-40); Mean Corpuscular HGB Conc 32.2 g/dl (31.0-36.0); Mean Corpuscular Hemoglobin 26.9 pg (27.0-33.0); Mean Corpuscular Volume 83.6 fL (80.0-98.0); Mean Platelet Volume 9.8 fL (9.4-12.4); Monocytes Absolute Auto 1.1 X10*3/uL (0.1-1.2); Monocytes Percent Auto 14.6 % (2-11); Neutrophils Absolute Auto 3.9 x10*3/uL (2.0-8.3); Neutrophils Percent Auto 53.8 % (45-73); Platelet Count 309 X10*3/uL (160-400); Red Blood Count 5.43 X10*6/uL (4.60-5.80); White Blood Count 7.3 X10*3/uL (4.8-10.8)
[2023-06-23 08:45] LABS: Estimated Average Glucose 94 mg/dL; Hemoglobin A1c % 4.9 % (<6.0)
[2023-06-23 09:10] LABS: Thyroid Stimulating Hormone 1.61 uIU/mL (0.32-4.0)
[2023-06-23] MEDS: Gabapentin 300 MG CAPSULE PO ×3 (09:16→19:38)
[2023-06-23] MEDS: cloNIDine HCL 0.1 MG TABLET PO ×2 (09:16→19:38)
[2023-06-23] MEDS: busPIRone HCl 10 MG TABLET PO ×2 (09:16→19:38)
[2023-06-23] MEDS: lisinopriL 5 MG TABLET PO (09:17)
[2023-06-23] MEDS: Nicotine 21 MG PATCH.TD24 TRANSDERMA (09:17)
[2023-06-23] MEDS: Venlafaxine HCl ER 75 MG CAP.ER.24H PO (09:17)
[2023-06-23 09:23] LABS: Folate 6.7 ng/mL (> or = 4.0); Vitamin B12 495 pg/mL (200-900)
[2023-06-23] MEDS: LORazepam 0.5 MG TABLET PO ×2 (09:24→17:54)
[2023-06-23 09:46] VITALS: BP 110/44; PULSE 60; RESP 16; TEMP 36.4; O2SAT 96
[2023-06-23] MEDS: Nicotine Polacrilex 2 MG GUM 4 MG BUCCAL ×2 (17:53→19:58)
--- NOTE | 2023-06-23 17:57 | P.PNPSI_ITS ---
Subjective Subjective Date of Service: 06/23/23 Reason For Visit: Depression Subjective Notes: Conditional Voluntary Interim History: Continues to report some sleep difficulty along with depressive sx. Planning PHP and to live with his father. Room change per pt, because I snore . Discussed EDNA eval. He will consider. Medication Compliance: Yes Side effects from medications: No Attending Groups: Intermittent Review of Systems Acute medical concerns: No Medical Review of Systems: unchanged Mental Status Exam Mental Status Exam Patient Appearance: Appropriate Patient Orientation: Person, Place, Time and Situation Level of Consciousness: Alert Patient Behavior: Talkative and Good Eye Contact Mood Description: Anxious and Flat Affect Description: Flat Patient Cognition Impaired: No Ability to Follow Directions: Fair Speech Pattern: Spontaneous Speech Memory Description: Episodic Impaired Hallucinations: None Delusions: Not Present Thought Process: Goal Oriented Thought Content: positive for Circumstantial and positive for Goal Oriented Depressive Symptoms: Increased Anxiety Judgement: Good Diagnostics Vital Signs (24Hr): Vital Signs - 24 hr 06/22/23 20:07 06/23/23 09:46 Temperature 97.6 F 97.6 F Pulse Rate 71 60 Respiratory Rate 16 Blood Pressure 116/56 L 110/44 L Pulse Oximetry 96 Oxygen Delivery Method Room Air BMI result Body Mass Index 34.7 Labs 06/23/23 08:30 06/17/23 08:08 Labs: Laboratory Results - last 48 hr 06/23/23 08:30 WBC 7.3 RBC 5.43 Hgb 14.6 Hct 45.4 MCV 83.6 MCH 26.9 L MCHC 32.2 RDW 14.0 Plt Count 309 MPV 9.8 Immature Gran % (Auto) 0.6 H Neut % (Auto) 53.8 Lymph % (Auto) 22.5 [place] % (Auto) 14.6 H Eos % (Auto) 7.3 H Baso % (Auto) 1.2 Lymph # (Auto) 1.6 [place] # (Auto) 1.1 Eos # (Auto) 0.5 H Baso # (Auto) 0.1 Abs Immat Gran (auto) 0.04 H Absolute Neuts (auto) 3.9 Absolute Nucleated RBC 0.000 Nucleated RBC % (auto) 0.0 Estimat Average Glucose 94 Hemoglobin A1c % 4.9 Vitamin B12 495 Folate 6.7 TSH 1.61 Medications Medications Current Medications Acetaminophen (Acetaminophen 325 Mg Tablet) 650 mg PO Q6H PRN PRN Reason: Headache/Pain Mild Scale (1-3) Al Hydroxide/Mg Hydroxide (Magnesium Hydrox/Alum Hydrox 30 Ml Oral.Susp) 30 ml PO Q6H PRN PRN Reason: Heartburn/Nausea Buspirone HCl (Buspirone Hcl 10 Mg Tablet) 10 mg PO BID [facility] Last Admin: 06/23/23 09:16 Dose: 10 mg Clonidine HCl (Clonidine Hcl 0.1 Mg Tablet) 0.1 mg PO TID [facility]; Protocol Last Admin: 06/23/23 14:09 Dose: Not Given Gabapentin (Gabapentin 300 Mg Capsule) 300 mg PO TID [facility] Last Admin: 06/23/23 14:02 Dose: 300 mg Hydroxyzine HCl (Hydroxyzine Hcl 25 Mg Tablet) 25 mg PO Q6H PRN PRN Reason: Anxiety Last Admin: 06/21/23 15:39 Dose: 25 mg Lisinopril (Lisinopril 5 Mg Tablet) 5 mg PO DAILY [facility]; Protocol Last Admin: 06/23/23 09:17 Dose: 5 mg Lorazepam (Lorazepam 0.5 Mg Tablet) 0.5 mg PO Q8H PRN PRN Reason: Anxiety Stop: 06/24/23 00:00 Last Admin: 06/23/23 17:54 Dose: 0.5 mg Lorazepam (Lorazepam 0.5 Mg Tablet) 0.5 mg PO Q12H PRN PRN Reason: Anxiety Stop: 06/25/23 00:00 Lorazepam (Lorazepam 0.5 Mg Tablet) 0.5 mg PO DAILY PRN PRN Reason: Anxiety Magnesium Hydroxide (Milk Of Magnesia 30 Ml Oral.Susp) 30 ml PO DAILY PRN PRN Reason: Constipation Nicotine (Nicotine 21 Mg Patch.Td24) 21 mg TRANSDERMA DAILY [facility] Last Admin: 06/23/23 09:17 Dose: 21 mg Nicotine Polacrilex (Nicotine Polacrilex 2 Mg Gum) 4 mg BUCCAL Q2H PRN PRN Reason: Nicotine Cravings Last Admin: 06/23/23 17:53 Dose: 4 mg Quetiapine Fumarate (Quetiapine Fumarate 25 Mg Tablet) 75 mg PO BEDTIME PRN PRN Reason: Insomnia Trazodone HCl (Trazodone Hcl 50 Mg Tablet) 50 mg PO BEDTIME MRX1 PRN PRN Reason: Insomnia Last Admin: 10/18/23 22:07 Dose: 50 mg Venlafaxine HCl (Venlafaxine Hcl Er 75 Mg Cap.Er.24h) 75 mg PO DAILY [facility] Last Admin: 06/23/23 09:17 Dose: 75 mg Allergies Allergies Allergy/AdvReac Type Severity Reaction Status Date / Time No Known Allergies Allergy Verified 06/16/23 15:50 Assessment & Plan Assessment & Plan (1) MDD (major depressive disorder), recurrent severe, without psychosis: Status: Acute Code(s): F33.2 - Major depressive disorder, recurrent severe without psychotic features (2) PTSD (post-traumatic stress disorder): Status: Acute Code(s): F43.10 - Post-traumatic stress disorder, unspecified (3) Alcohol dependence: Status: Acute Code(s): F10.20 - Alcohol dependence, uncomplicated (4) Cocaine use disorder: Status: Acute Code(s): F14.10 - Cocaine abuse, uncomplicated Plan Patient is a 32-year-old male with history of depression, anxiety PTSD, alcohol and cocaine dependence, HTN, WPW (by history) recently discharged from [facility], who self presents for depression with SI and the face of no medication and ongoing chronic severe substance abuse. -patient has had some medication trials even during periods of sobriety, while in [facility] and says little has worked; however when he was out of [facility] and sober for about 4 months, he said his mood was good and anxiety low -seems that much of his depression and anxiety is compounded by substance abuse; though sober and [facility], on going, exacerbated and significant PTSD symptoms may have proved a barrier to medications effectiveness -will detox from alcohol; will start on venlafaxine (reviewed risks/side effects which patient understands and agrees to). May consider Lamictal. For full recovery patient needs sobriety in therapy and removal from gang affiliation Plan: CV Q 15 minute checks CIWA with p.r.n. Ativan Scheduled Ativan with build in taper to help with withdrawal Scheduled gabapentin 300 mg t.i.d.; will consider whether not to taper or continue if helps with anxiety Continue clonidine 0.1 mg t.i.d. Continue BuSpar 10 mg b.i.d. Continue lisinopril 5 mg daily START venlafaxine 37.5 mg daily for depression; will titrate Will consider Lamictal since can help with both PTSD, anxiety and depression; patient says that he is consistent with taking medications as they are prescribed DC atomoxetine; patient started at [facility] currently does not want Seems that patient Recently received sublaCade 300 mg on 06/10 Obtain collateral; dispo planning 06/18 continue above treatmetn plan; consider increase effexor 06/19 06/20: Patient keeping to self guarded, reports feeling anxious and depressed today. Pt stated, I'm still having some withdrawal symptoms but it's not too bad . Denies SI/HI/VH/AH. He reports he would like to attend PHP after discharge. hot tamale worker notified. Continue current tx plan. 06/22/23 Increase Venlafaxine to 75 mg daily Seroquel 75 mg HS prn insomnia B12,Folate,TSH, A1C, CBCD, EKG Ativan tapering, 1.5 mg 06/23, 1 mg 06/24, 0.5 mg 06/25 06/23 Continue current regime and plan of care. Patient educated on: therapeutic strategies Informed Consent: understands Reason for continued inpatient stay Substantial Risk for: rapid decompensation Time Spent With Patient Time: Total time managing care of this patient today ____ minutes.
[2023-06-23 19:33] VITALS: BP 127/69; PULSE 67; TEMP 36.6
[2023-06-23] MEDS: traZODone HCL 50 MG TABLET PO ×2 (19:38→20:46)
[2023-06-24 08:30] VITALS: BP 140/72; PULSE 66; RESP 18; TEMP 36.3; O2SAT 100
[2023-06-24] MEDS: Nicotine 21 MG PATCH.TD24 TRANSDERMA (09:28)
[2023-06-24] MEDS: busPIRone HCl 10 MG TABLET PO ×3 (09:28→19:57)
[2023-06-24] MEDS: Venlafaxine HCl ER 75 MG CAP.ER.24H PO (09:29)
[2023-06-24] MEDS: cloNIDine HCL 0.1 MG TABLET PO ×3 (09:29→19:57)
[2023-06-24] MEDS: Gabapentin 300 MG CAPSULE PO ×3 (09:29→19:57)
[2023-06-24] MEDS: lisinopriL 5 MG TABLET PO (09:29)
[2023-06-24] MEDS: Nicotine Polacrilex 2 MG GUM 4 MG BUCCAL ×5 (09:32→19:56)
[2023-06-24] MEDS: LORazepam 0.5 MG TABLET PO ×2 (09:33→21:36)
--- NOTE | 2023-06-24 15:46 | P.PNPSI_ITS ---
Subjective Subjective Date of Service: 06/24/23 Reason For Visit: Depression Subjective Notes: Conditional Voluntary Interim History: Reports sleep is improved anxiety is increased Discussed ex-partner with recent CVA he has just learned about Med review for anxiety. Medication Compliance: Yes Side effects from medications: No Attending Groups: Intermittent Review of Systems Acute medical concerns: No Mental Status Exam Mental Status Exam Patient Appearance: Appropriate Patient Orientation: Person, Place, Time and Situation Level of Consciousness: Alert Patient Behavior: Talkative and Good Eye Contact Mood Description: Anxious and Flat Affect Description: Flat Patient Cognition Impaired: No Ability to Follow Directions: Fair Speech Pattern: Spontaneous Speech Memory Description: Episodic Impaired Hallucinations: None Delusions: Not Present Thought Process: Goal Oriented Thought Content: positive for Circumstantial and positive for Goal Oriented Depressive Symptoms: Increased Anxiety Judgement: Good Diagnostics Vital Signs (24Hr): Vital Signs - 24 hr 06/23/23 19:33 06/24/23 08:30 Temperature 97.8 F 97.3 F Pulse Rate 67 66 Respiratory Rate 18 Blood Pressure 127/69 140/72 H Pulse Oximetry 100 Oxygen Delivery Method Room Air BMI result Body Mass Index 34.7 Labs 06/23/23 08:30 06/17/23 08:08 Labs: Laboratory Results - last 48 hr 06/23/23 08:30 WBC 7.3 RBC 5.43 Hgb 14.6 Hct 45.4 MCV 83.6 MCH 26.9 L MCHC 32.2 RDW 14.0 Plt Count 309 MPV 9.8 Immature Gran % (Auto) 0.6 H Neut % (Auto) 53.8 Lymph % (Auto) 22.5 [place] % (Auto) 14.6 H Eos % (Auto) 7.3 H Baso % (Auto) 1.2 Lymph # (Auto) 1.6 [place] # (Auto) 1.1 Eos # (Auto) 0.5 H Baso # (Auto) 0.1 Abs Immat Gran (auto) 0.04 H Absolute Neuts (auto) 3.9 Absolute Nucleated RBC 0.000 Nucleated RBC % (auto) 0.0 Estimat Average Glucose 94 Hemoglobin A1c % 4.9 Vitamin B12 495 Folate 6.7 TSH 1.61 Medications Medications Current Medications Acetaminophen (Acetaminophen 325 Mg Tablet) 650 mg PO Q6H PRN PRN Reason: Headache/Pain Mild Scale (1-3) Al Hydroxide/Mg Hydroxide (Magnesium Hydrox/Alum Hydrox 30 Ml Oral.Susp) 30 ml PO Q6H PRN PRN Reason: Heartburn/Nausea Buspirone HCl (Buspirone Hcl 10 Mg Tablet) 10 mg PO TID [facility] Last Admin: 06/24/23 14:21 Dose: 10 mg Clonidine HCl (Clonidine Hcl 0.1 Mg Tablet) 0.1 mg PO TID [facility]; Protocol Last Admin: 06/24/23 14:20 Dose: 0.1 mg Gabapentin (Gabapentin 300 Mg Capsule) 300 mg PO TID [facility] Last Admin: 06/24/23 14:21 Dose: 300 mg Hydroxyzine HCl (Hydroxyzine Hcl 25 Mg Tablet) 25 mg PO Q6H PRN PRN Reason: Anxiety Last Admin: 06/21/23 15:39 Dose: 25 mg Lisinopril (Lisinopril 5 Mg Tablet) 5 mg PO DAILY [facility]; Protocol Last Admin: 06/24/23 09:29 Dose: 5 mg Lorazepam (Lorazepam 0.5 Mg Tablet) 0.5 mg PO Q12H PRN PRN Reason: Anxiety Stop: 06/25/23 00:00 Last Admin: 06/24/23 09:33 Dose: 0.5 mg Lorazepam (Lorazepam 0.5 Mg Tablet) 0.5 mg PO DAILY PRN PRN Reason: Anxiety Magnesium Hydroxide (Milk Of Magnesia 30 Ml Oral.Susp) 30 ml PO DAILY PRN PRN Reason: Constipation Nicotine (Nicotine 21 Mg Patch.Td24) 21 mg TRANSDERMA DAILY [facility] Last Admin: 06/24/23 09:28 Dose: 21 mg Nicotine Polacrilex (Nicotine Polacrilex 2 Mg Gum) 4 mg BUCCAL Q2H PRN PRN Reason: Nicotine Cravings Last Admin: 06/24/23 14:21 Dose: 4 mg Quetiapine Fumarate (Quetiapine Fumarate 25 Mg Tablet) 75 mg PO BEDTIME PRN PRN Reason: Insomnia Trazodone HCl (Trazodone Hcl 100 Mg Tablet) 100 mg PO BEDTIME [facility] Trazodone HCl (Trazodone Hcl 50 Mg Tablet) 50 mg PO BEDTIME PRN PRN Reason: Insomnia Venlafaxine HCl (Venlafaxine Hcl Er 150 Mg Cap.Er.24h) 150 mg PO DAILY [facility] Allergies Allergies Allergy/AdvReac Type Severity Reaction Status Date / Time No Known Allergies Allergy Verified 06/16/23 15:50 Assessment & Plan Assessment & Plan (1) MDD (major depressive disorder), recurrent severe, without psychosis: Status: Acute Code(s): F33.2 - Major depressive disorder, recurrent severe without psychotic features (2) PTSD (post-traumatic stress disorder): Status: Acute Code(s): F43.10 - Post-traumatic stress disorder, unspecified (3) Alcohol dependence: Status: Acute Code(s): F10.20 - Alcohol dependence, uncomplicated (4) Cocaine use disorder: Status: Acute Code(s): F14.10 - Cocaine abuse, uncomplicated Plan Patient is a 32-year-old male with history of depression, anxiety PTSD, alcohol and cocaine dependence, HTN, WPW (by history) recently discharged from [facility], who self presents for depression with SI and the face of no medication and ongoing chronic severe substance abuse. -patient has had some medication trials even during periods of sobriety, while in group home and says little has worked; however when he was out of group home and sober for about 4 months, he said his mood was good and anxiety low -seems that much of his depression and anxiety is compounded by substance abuse; though sober and group home, on going, exacerbated and significant PTSD symptoms may have proved a barrier to medications effectiveness -will detox from alcohol; will start on venlafaxine (reviewed risks/side effects which patient understands and agrees to). May consider Lamictal. For full recovery patient needs sobriety in therapy and removal from gang affiliation Plan: CV Q 15 minute checks CIWA with p.r.n. Ativan Scheduled Ativan with build in taper to help with withdrawal Scheduled gabapentin 300 mg t.i.d.; will consider whether not to taper or continue if helps with anxiety Continue clonidine 0.1 mg t.i.d. Continue BuSpar 10 mg b.i.d. Continue lisinopril 5 mg daily START venlafaxine 37.5 mg daily for depression; will titrate Will consider Lamictal since can help with both PTSD, anxiety and depression; patient says that he is consistent with taking medications as they are prescribed DC atomoxetine; patient started at [facility] currently does not want Seems that patient Recently received sublaCade 300 mg on 06/10 Obtain collateral; dispo planning 06/18 continue above treatmetn plan; consider increase effexor 06/19 06/20: Patient keeping to self guarded, reports feeling anxious and depressed today. Pt stated, I'm still having some withdrawal symptoms but it's not too bad . Denies SI/HI/VH/AH. He reports he would like to attend PHP after discharge. airport utility worker notified. Continue current tx plan. 06/22/23 Increase Venlafaxine to 75 mg daily Seroquel 75 mg HS prn insomnia B12,Folate,TSH, A1C, CBCD, EKG Ativan tapering, 1.5 mg 06/23, 1 mg 06/24, 0.5 mg 06/25 06/24 Increase Venlafaxine to 150 mg daily Buspirone 10 mg tid Patient educated on: medication risk/benefits Informed Consent: understands Reason for continued inpatient stay Substantial Risk for: rapid decompensation Time Spent With Patient Time: Total time managing care of this patient today ____ minutes.
[2023-06-24 19:55] VITALS: BP 135/79; PULSE 68; RESP 18; TEMP 36.6; O2SAT 97
[2023-06-24] MEDS: hydrOXYzine HCL 25 MG TABLET PO (19:56)
[2023-06-24] MEDS: traZODone HCL 100 MG TABLET PO (19:57)
[2023-06-24] MEDS: traZODone HCL 50 MG TABLET PO (21:36)
[2023-06-25 07:50] VITALS: BP 118/54; PULSE 56; RESP 18; TEMP 36.4; O2SAT 94
[2023-06-25] MEDS: Gabapentin 300 MG CAPSULE PO ×3 (08:17→19:57)
[2023-06-25] MEDS: cloNIDine HCL 0.1 MG TABLET PO ×3 (08:17→19:57)
[2023-06-25] MEDS: lisinopriL 5 MG TABLET PO (08:17)
[2023-06-25] MEDS: Nicotine 21 MG PATCH.TD24 TRANSDERMA (08:17)
[2023-06-25] MEDS: Venlafaxine HCl ER 150 MG CAP.ER.24H PO (08:17)
[2023-06-25] MEDS: busPIRone HCl 10 MG TABLET PO ×3 (08:17→19:59)
--- NOTE | 2023-06-25 10:04 | P.PNPSI_ITS ---
Subjective Subjective Date of Service: 06/25/23 Reason For Visit: Depression Interim History: Reports he feels improved. He identifies his substance use and his break up as reasons for decompensation. He has been adherent to medications. Sleep is better. Appetite is good. anxiety is improving. He denies SI. Review of Systems Review of Systems Pt has no acute medical complaints at this time Constitutional: Reports as per HPI Eyes: Reports as per HPI Reports as per HPI Cardiovascular: Reports as per HPI Respiratory: Reports as per HPI Gastrointestinal: Reports as per HPI Genitourinary: Reports as per HPI Musculoskeletal: Reports as per HPI Skin/Breast: Reports as per HPI Reports as per HPI Psychiatric: Reports as per HPI Endocrine: Reports as per HPI Hematologic/Lymphatic: Reports as per HPI Allergic/Immunologic: Reports as per HPI Mental Status Exam Mental Status Exam Narrative: Pt is alert and oriented; behavior is guarded and calm; dressed in casual attire; mood is described as anxious and depressed ; eye contact appropriate; Speech is normal rate, volume and prosody and not pressured; no psychomotor agitation/retardation present; thought process is organized and goal directed; Thought content is on tx; otherwise pertinent to relevant topics and without any delusional content, paranoid ideations or grandiosity; denies SI/HI. There is no evidence of perceptual disturbance. Patients insight and judgment are poor. Patient Appearance: Appropriate Patient Orientation: Person, Place, Time and Situation Level of Consciousness: Alert Patient Behavior: Talkative and Good Eye Contact Mood Description: Anxious and Flat Affect Description: Flat Patient Cognition Impaired: No Ability to Follow Directions: Fair Speech Pattern: Spontaneous Speech Memory Description: Episodic Impaired Diagnostics Vital Signs (24Hr): Vital Signs - 24 hr 06/24/23 19:55 06/25/23 07:50 Temperature 97.9 F 97.5 F Pulse Rate 68 56 Respiratory Rate 18 18 Blood Pressure 135/79 118/54 L Pulse Oximetry 97 94 Oxygen Delivery Method Room Air Room Air BMI result Body Mass Index 34.7 Labs 06/23/23 08:30 06/17/23 08:08 Medications Medications Current Medications Acetaminophen (Acetaminophen 325 Mg Tablet) 650 mg PO Q6H PRN PRN Reason: Headache/Pain Mild Scale (1-3) Al Hydroxide/Mg Hydroxide (Magnesium Hydrox/Alum Hydrox 30 Ml Oral.Susp) 30 ml PO Q6H PRN PRN Reason: Heartburn/Nausea Buspirone HCl (Buspirone Hcl 10 Mg Tablet) 10 mg PO TID [facility] Last Admin: 06/25/23 08:17 Dose: 10 mg Clonidine HCl (Clonidine Hcl 0.1 Mg Tablet) 0.1 mg PO TID [facility]; Protocol Last Admin: 06/25/23 08:17 Dose: 0.1 mg Gabapentin (Gabapentin 300 Mg Capsule) 300 mg PO TID [facility] Last Admin: 06/25/23 08:17 Dose: 300 mg Hydroxyzine HCl (Hydroxyzine Hcl 25 Mg Tablet) 25 mg PO Q6H PRN PRN Reason: Anxiety Last Admin: 06/24/23 19:56 Dose: 25 mg Lisinopril (Lisinopril 5 Mg Tablet) 5 mg PO DAILY [facility]; Protocol Last Admin: 06/25/23 08:17 Dose: 5 mg Lorazepam (Lorazepam 0.5 Mg Tablet) 0.5 mg PO DAILY PRN PRN Reason: Anxiety Magnesium Hydroxide (Milk Of Magnesia 30 Ml Oral.Susp) 30 ml PO DAILY PRN PRN Reason: Constipation Nicotine (Nicotine 21 Mg Patch.Td24) 21 mg TRANSDERMA DAILY [facility] Last Admin: 06/25/23 08:17 Dose: 21 mg Nicotine Polacrilex (Nicotine Polacrilex 2 Mg Gum) 4 mg BUCCAL Q2H PRN PRN Reason: Nicotine Cravings Last Admin: 06/24/23 19:56 Dose: 4 mg Quetiapine Fumarate (Quetiapine Fumarate 25 Mg Tablet) 75 mg PO BEDTIME PRN PRN Reason: Insomnia Trazodone HCl (Trazodone Hcl 100 Mg Tablet) 100 mg PO BEDTIME [facility] Last Admin: 06/24/23 19:57 Dose: 100 mg Trazodone HCl (Trazodone Hcl 50 Mg Tablet) 50 mg PO BEDTIME PRN PRN Reason: Insomnia Last Admin: 06/24/23 21:36 Dose: 50 mg Venlafaxine HCl (Venlafaxine Hcl Er 150 Mg Cap.Er.24h) 150 mg PO DAILY [facility] Last Admin: 06/25/23 08:17 Dose: 150 mg Allergies Allergies Allergy/AdvReac Type Severity Reaction Status Date / Time No Known Allergies Allergy Verified 06/16/23 15:50 Assessment & Plan Assessment & Plan (1) MDD (major depressive disorder), recurrent severe, without psychosis: Status: Acute Code(s): F33.2 - Major depressive disorder, recurrent severe without psychotic features (2) PTSD (post-traumatic stress disorder): Status: Acute Code(s): F43.10 - Post-traumatic stress disorder, unspecified (3) Alcohol dependence: Status: Acute Code(s): F10.20 - Alcohol dependence, uncomplicated (4) Cocaine use disorder: Status: Acute Code(s): F14.10 - Cocaine abuse, uncomplicated Plan Patient is a 32-year-old male with history of depression, anxiety PTSD, alcohol and cocaine dependence, HTN, WPW (by history) recently discharged from [facility], who self presents for depression with SI and the face of no medication and ongoing chronic severe substance abuse. -patient has had some medication trials even during periods of sobriety, while in [facility] and says little has worked; however when he was out of [facility] and sober for about 4 months, he said his mood was good and anxiety low -seems that much of his depression and anxiety is compounded by substance abuse; though sober and [facility], on going, exacerbated and significant PTSD symptoms may have proved a barrier to medications effectiveness -will detox from alcohol; will start on venlafaxine (reviewed risks/side effects which patient understands and agrees to). May consider Lamictal. For full recovery patient needs sobriety in therapy and removal from gang affiliation Plan: CV Q 15 minute checks CIWA with p.r.n. Ativan Scheduled Ativan with build in taper to help with withdrawal Scheduled gabapentin 300 mg t.i.d.; will consider whether not to taper or continue if helps with anxiety Continue clonidine 0.1 mg t.i.d. Continue BuSpar 10 mg b.i.d. Continue lisinopril 5 mg daily START venlafaxine 37.5 mg daily for depression; will titrate Will consider Lamictal since can help with both PTSD, anxiety and depression; patient says that he is consistent with taking medications as they are prescribed DC atomoxetine; patient started at [facility] currently does not want Seems that patient Recently received sublaCade 300 mg on 06/10 Obtain collateral; dispo planning 06/18 continue above treatmetn plan; consider increase effexor 06/19 06/20: Patient keeping to self guarded, reports feeling anxious and depressed today. Pt stated, I'm still having some withdrawal symptoms but it's not too bad . Denies SI/HI/VH/AH. He reports he would like to attend PHP after discharge. crop farm workers notified. Continue current tx plan. 06/22/23 Increase Venlafaxine to 75 mg daily Seroquel 75 mg HS prn insomnia B12,Folate,TSH, A1C, CBCD, EKG Ativan tapering, 1.5 mg 06/23, 1 mg 06/24, 0.5 mg 06/25 06/24 Increase Venlafaxine to 150 mg daily Buspirone 10 mg tid 06/25: Continue current treatment plan. Reason for continued inpatient stay Substantial Risk for: harm to self and rapid decompensation Time Spent With Patient Time: Total time managing care of this patient today ____ minutes.
[2023-06-25] MEDS: Nicotine Polacrilex 2 MG GUM 4 MG BUCCAL ×4 (11:12→19:59)
[2023-06-25] MEDS: LORazepam 0.5 MG TABLET PO (12:09)
[2023-06-25 18:00] VITALS: BP 106/75; PULSE 84; TEMP 36.9; O2SAT 96
[2023-06-25] MEDS: traZODone HCL 100 MG TABLET PO (19:57)
[2023-06-26 08:00] VITALS: BP 120/58; PULSE 57; RESP 18; TEMP 36.7; O2SAT 96
--- NOTE | 2023-06-26 08:10 | HO.PSYCHPN ---
Subjective Subjective Date of Service: 06/26/23 Reason For Visit: Depression Interim History: Continues to report improvement. He denies side effects to medications. He identifies his substance use and his break up as reasons for decompensation. He has been adherent to medications. Says he is hoping to go to a sober living situation. Sleep is better. Appetite is good. anxiety is improving. He denies SI. Review of Systems Review of Systems Pt has no acute medical complaints at this time Constitutional: Reports as per HPI Eyes: Reports as per HPI Reports as per HPI Cardiovascular: Reports as per HPI Respiratory: Reports as per HPI Gastrointestinal: Reports as per HPI Genitourinary: Reports as per HPI Musculoskeletal: Reports as per HPI Skin/Breast: Reports as per HPI Reports as per HPI Psychiatric: Reports as per HPI Endocrine: Reports as per HPI Hematologic/Lymphatic: Reports as per HPI Allergic/Immunologic: Reports as per HPI Mental Status Exam Mental Status Exam Narrative: Pt is alert and oriented; behavior is guarded and calm; dressed in casual attire; mood is described as anxious and depressed ; eye contact appropriate; Speech is normal rate, volume and prosody and not pressured; no psychomotor agitation/retardation present; thought process is organized and goal directed; Thought content is on tx; otherwise pertinent to relevant topics and without any delusional content, paranoid ideations or grandiosity; denies SI/HI. There is no evidence of perceptual disturbance. Patients insight and judgment are poor. Patient Appearance: Appropriate Patient Orientation: Person, Place, Time and Situation Level of Consciousness: Alert Patient Behavior: Talkative and Good Eye Contact Mood Description: Anxious and Flat Affect Description: Flat Patient Cognition Impaired: No Ability to Follow Directions: Fair Speech Pattern: Spontaneous Speech Memory Description: Episodic Impaired Diagnostics Vital Signs (24Hr): Vital Signs - 24 hr 06/25/23 18:00 Temperature 98.4 F Pulse Rate 84 Blood Pressure 106/75 Pulse Oximetry 96 Oxygen Delivery Method Room Air BMI result Body Mass Index 34.7 Labs 06/23/23 08:30 06/17/23 08:08 Medications Medications Current Medications Acetaminophen (Acetaminophen 325 Mg Tablet) 650 mg PO Q6H PRN PRN Reason: Headache/Pain Mild Scale (1-3) Al Hydroxide/Mg Hydroxide (Magnesium Hydrox/Alum Hydrox 30 Ml Oral.Susp) 30 ml PO Q6H PRN PRN Reason: Heartburn/Nausea Buspirone HCl (Buspirone Hcl 10 Mg Tablet) 10 mg PO TID [facility] Last Admin: 06/25/23 19:59 Dose: 10 mg Clonidine HCl (Clonidine Hcl 0.1 Mg Tablet) 0.1 mg PO TID [facility]; Protocol Last Admin: 06/25/23 19:57 Dose: 0.1 mg Gabapentin (Gabapentin 300 Mg Capsule) 300 mg PO TID [facility] Last Admin: 06/25/23 19:57 Dose: 300 mg Hydroxyzine HCl (Hydroxyzine Hcl 25 Mg Tablet) 25 mg PO Q6H PRN PRN Reason: Anxiety Last Admin: 06/24/23 19:56 Dose: 25 mg Lisinopril (Lisinopril 5 Mg Tablet) 5 mg PO DAILY [facility]; Protocol Last Admin: 06/25/23 08:17 Dose: 5 mg Lorazepam (Lorazepam 0.5 Mg Tablet) 0.5 mg PO DAILY PRN PRN Reason: Anxiety Last Admin: 06/25/23 12:09 Dose: 0.5 mg Magnesium Hydroxide (Milk Of Magnesia 30 Ml Oral.Susp) 30 ml PO DAILY PRN PRN Reason: Constipation Nicotine (Nicotine 21 Mg Patch.Td24) 21 mg TRANSDERMA DAILY [facility] Last Admin: 06/25/23 08:17 Dose: 21 mg Nicotine Polacrilex (Nicotine Polacrilex 2 Mg Gum) 4 mg BUCCAL Q2H PRN PRN Reason: Nicotine Cravings Last Admin: 06/25/23 19:59 Dose: 4 mg Quetiapine Fumarate (Quetiapine Fumarate 25 Mg Tablet) 75 mg PO BEDTIME PRN PRN Reason: Insomnia Trazodone HCl (Trazodone Hcl 100 Mg Tablet) 100 mg PO BEDTIME [facility] Last Admin: 06/25/23 19:57 Dose: 100 mg Trazodone HCl (Trazodone Hcl 50 Mg Tablet) 50 mg PO BEDTIME PRN PRN Reason: Insomnia Last Admin: 06/24/23 21:36 Dose: 50 mg Venlafaxine HCl (Venlafaxine Hcl Er 150 Mg Cap.Er.24h) 150 mg PO DAILY [facility] Last Admin: 06/25/23 08:17 Dose: 150 mg Allergies Allergies Allergy/AdvReac Type Severity Reaction Status Date / Time No Known Allergies Allergy Verified 06/16/23 15:50 Assessment & Plan Assessment & Plan (1) MDD (major depressive disorder), recurrent severe, without psychosis: Status: Acute Code(s): F33.2 - Major depressive disorder, recurrent severe without psychotic features (2) PTSD (post-traumatic stress disorder): Status: Acute Code(s): F43.10 - Post-traumatic stress disorder, unspecified (3) Alcohol dependence: Status: Acute Code(s): F10.20 - Alcohol dependence, uncomplicated (4) Cocaine use disorder: Status: Acute Code(s): F14.10 - Cocaine abuse, uncomplicated Plan Patient is a 32-year-old male with history of depression, anxiety PTSD, alcohol and cocaine dependence, HTN, WPW (by history) recently discharged from [facility], who self presents for depression with SI and the face of no medication and ongoing chronic severe substance abuse. -patient has had some medication trials even during periods of sobriety, while in long term and says little has worked; however when he was out of long term and sober for about 4 months, he said his mood was good and anxiety low -seems that much of his depression and anxiety is compounded by substance abuse; though sober and long term, on going, exacerbated and significant PTSD symptoms may have proved a barrier to medications effectiveness -will detox from alcohol; will start on venlafaxine (reviewed risks/side effects which patient understands and agrees to). May consider Lamictal. For full recovery patient needs sobriety in therapy and removal from gang affiliation Plan: CV Q 15 minute checks CIWA with p.r.n. Ativan Scheduled Ativan with build in taper to help with withdrawal Scheduled gabapentin 300 mg t.i.d.; will consider whether not to taper or continue if helps with anxiety Continue clonidine 0.1 mg t.i.d. Continue BuSpar 10 mg b.i.d. Continue lisinopril 5 mg daily START venlafaxine 37.5 mg daily for depression; will titrate Will consider Lamictal since can help with both PTSD, anxiety and depression; patient says that he is consistent with taking medications as they are prescribed DC atomoxetine; patient started at [facility] currently does not want Seems that patient Recently received sublaCade 300 mg on 06/10 Obtain collateral; dispo planning 06/18 continue above treatmetn plan; consider increase effexor 06/19 06/20: Patient keeping to self guarded, reports feeling anxious and depressed today. Pt stated, I'm still having some withdrawal symptoms but it's not too bad . Denies SI/HI/VH/AH. He reports he would like to attend PHP after discharge. generator worker notified. Continue current tx plan. 06/22/23 Increase Venlafaxine to 75 mg daily Seroquel 75 mg HS prn insomnia B12,Folate,TSH, A1C, CBCD, EKG Ativan tapering, 1.5 mg 06/23, 1 mg 06/24, 0.5 mg 06/25 06/24 Increase Venlafaxine to 150 mg daily Buspirone 10 mg tid 06/25: Continue current treatment plan. 06/26: Continue current plan. Reason for continued inpatient stay Substantial Risk for: harm to self and rapid decompensation Time Spent With Patient Time: Total time managing care of this patient today ____ minutes.
[2023-06-26] MEDS: Nicotine 21 MG PATCH.TD24 TRANSDERMA (08:27)
[2023-06-26] MEDS: cloNIDine HCL 0.1 MG TABLET PO ×3 (08:28→20:24)
[2023-06-26] MEDS: Gabapentin 300 MG CAPSULE PO ×3 (08:28→20:24)
[2023-06-26] MEDS: lisinopriL 5 MG TABLET PO (08:28)
[2023-06-26] MEDS: busPIRone HCl 10 MG TABLET PO ×3 (08:28→20:24)
[2023-06-26] MEDS: Venlafaxine HCl ER 150 MG CAP.ER.24H PO (08:28)
[2023-06-26] MEDS: Nicotine Polacrilex 2 MG GUM 4 MG BUCCAL ×5 (11:04→21:13)
[2023-06-26] MEDS: LORazepam 0.5 MG TABLET PO (11:40)
[2023-06-26] MEDS: hydrOXYzine HCL 25 MG TABLET PO (15:58)
[2023-06-26 16:15] VITALS: BP 122/75; PULSE 85; TEMP 36.1; O2SAT 98
[2023-06-26] MEDS: traZODone HCL 100 MG TABLET PO (20:24)
[2023-06-27] MEDS: traZODone HCL 50 MG TABLET PO (00:35)
[2023-06-27 08:30] VITALS: BP 105/52; PULSE 65; RESP 18; TEMP 36.1; O2SAT 96
[2023-06-27] MEDS: busPIRone HCl 10 MG TABLET PO (09:45)
[2023-06-27] MEDS: Venlafaxine HCl ER 150 MG CAP.ER.24H PO (09:45)
[2023-06-27] MEDS: cloNIDine HCL 0.1 MG TABLET PO (09:45)
[2023-06-27] MEDS: Gabapentin 300 MG CAPSULE PO (09:45)
[2023-06-27] MEDS: lisinopriL 5 MG TABLET PO (09:45)
[2023-06-27] MEDS: Nicotine 21 MG PATCH.TD24 TRANSDERMA (09:46)
[2023-06-27] MEDS: LORazepam 0.5 MG TABLET PO (10:53)
--- NOTE | 2023-06-27 14:37 | PM.PSYDC ---
DS: Providers Provider Date of Service: 06/27/23 Date of admission: 06/16/23 18:04 Date of discharge: 06/27/23 Primary care physician: Unknown Physician Admitting clinician: Tylor Cochran Attending physician on admission: Tylor Cochran Consults: 06/16/23 10:58 Consult to Hospitalist Routine Comment: Consulting Provider: Hospitalist Reason For Exam: direct admission Attending physician on discharge: Ancelmo Dumont Discharging clinician: Pamela Borja DS: Diagnosis Discharge Diagnosis (1) MDD (major depressive disorder), recurrent severe, without psychosis: Status: Acute (2) PTSD (post-traumatic stress disorder): Status: Acute (3) Alcohol dependence: Status: Acute (4) Cocaine use disorder: Status: Acute DS: Medications Discharge Medications Home Medications: Previous Rx's Medication Instructions Recorded buspirone 10 mg tablet 10 mg PO TID #90 tabs 06/27/23 clonidine HCl 0.1 mg tablet 0.1 mg PO TID #90 tabs 06/27/23 gabapentin 300 mg capsule 300 mg PO TID #90 caps 06/27/23 lisinopril 5 mg tablet 5 mg PO DAILY blood pressure #30 06/27/23 tabs nicotine (polacrilex) 2 mg gum 4 mg buccal Q2H PRN Nicotine 06/27/23 Cravings #60 ea nicotine 21 mg/24 hr daily 21 mg transdermal DAILY #30 ea 06/27/23 transdermal patch trazodone 100 mg tablet 100 mg PO BEDTIME #30 tabs 06/27/23 venlafaxine 37.5 mg 37.5 mg PO DAILY #7 caps 06/27/23 capsule,extended release 24 hr venlafaxine 37.5 mg 37.5 mg PO DAILY #7 caps 06/27/23 capsule,extended release 24 hr venlafaxine 75 mg capsule,extended 75 mg PO DAILY #7 caps 06/27/23 release 24 hr venlafaxine 75 mg capsule,extended 75 mg PO DAILY #7 caps 06/27/23 release 24 hr Mental Status Exam Mental Status Exam Patient Appearance: Appropriate Patient Orientation: Person, Place, Time and Situation Level of Consciousness: Alert Patient Behavior: Talkative and Good Eye Contact Mood Description: Anxious and Flat Affect Description: Flat Patient Cognition Impaired: No Ability to Follow Directions: Fair Speech Pattern: Spontaneous Speech Memory Description: Episodic Impaired Hallucinations: None Delusions: Not Present Thought Process: Goal Oriented Thought Content: positive for Circumstantial and positive for Goal Oriented Depressive Symptoms: Increased Anxiety Judgement: Good Data Data Completed and Pending Completed studies during hospitalization [Text1]: 06/23/23 08:30 WBC 7.3 RBC 5.43 Hgb 14.6 Hct 45.4 MCV 83.6 MCH 26.9 L MCHC 32.2 RDW 14.0 Plt Count 309 MPV 9.8 Immature Gran % (Auto) 0.6 H Neut % (Auto) 53.8 Lymph % (Auto) 22.5 [place] % (Auto) 14.6 H Eos % (Auto) 7.3 H Baso % (Auto) 1.2 Lymph # (Auto) 1.6 [place] # (Auto) 1.1 Eos # (Auto) 0.5 H Baso # (Auto) 0.1 Abs Immat Gran (auto) 0.04 H Absolute Neuts (auto) 3.9 Absolute Nucleated RBC 0.000 Nucleated RBC % (auto) 0.0 Estimat Average Glucose 94 Hemoglobin A1c % 4.9 Vitamin B12 495 Folate 6.7 TSH 1.61 DS: Summary Hospital Course Hospital Course: Admission to adult psychiatry for exacerbation of depression, PTSD and alcohol and cocaine use. Pt reports being discharged from [facility] 3 days prior to admission and relapsed and was without medications. Pt with SI upon presentation. On the unit, medication regime was reviewed, adjusted and implemented. Pt was offered full milieu therapy during his admission and is discharged to attend partial hospital program and out patient care. Pt requested to stop Venlafaxine upon discharge. Tapering schedule was implemented. Time spent discussing smoking cessation with patient: 3 to 10 minutes Status at Discharge Functional status at discharge: independent ambulation Overall status at discharge: patient is progressing back to baseline Time Spent with Patient Time attestation: Total time managing care of this patient today ____ minutes. Time spent: Greater than 30 minutes Discharge Plan Discharge Anticipated Discharge Date/Time: 06/27/23 12:00 Patient Disposition: Home, Self-Care Discharge Diagnosis: PTSD Major Depression Alcohol Use Disorder Cocaine Use Disorder Referrals: PARTIAL HOSPITALIZATION PROGRAM [Other] - 08/03/23 11:00 am (INTAKE) Cyn Portillo (therapist): [facility] [Other] - 06/29/23 2:00 pm (Initial Diagnostic Evaluation for Therapy Hospital Discharge appointment. Appointment is in person at [facility] (clinic) ) Lamberto Brady: [facility](Psychiatry) [Other] - 07/27/23 2:00 pm (Initial Psychiatric Evaluation by a psychiatric provider for medication management Appointment is tele-health. Check your email for a link to the appointment. Hospital Discharge Appointment.) Lamberto Brady:[facility] (Psychiatry) [Other] - 08/25/23 1:00 pm (Medication Management appointment Appointment is tele-health. Check your email for a link to the appointment.) Physician,Unknown J [Primary Care Provider] - 1 Week Discharge Medications: New nicotine (polacrilex) 2 mg Gum 4 mg buccal Q2H PRN (Reason: Nicotine Cravings) Qty: 60 0RF trazodone 100 mg Tablet 100 mg PO BEDTIME Qty: 30 0RF buspirone 10 mg Tablet 10 mg PO TID Qty: 90 0RF nicotine 21 mg/24 hr Patch 24 Hour 21 mg transdermal DAILY Qty: 30 0RF gabapentin 300 mg Capsule 300 mg PO TID Qty: 90 0RF venlafaxine 75 mg capsule,extended release 24hr 75 mg PO DAILY Qty: 7 0RF Rx Instructions: Tapering of Venlafaxine 112.5 mg daily 06/28-07/05 75 mg daily 07/06-07/13 37.5 mg daily 07/14-07/21 venlafaxine 37.5 mg capsule,extended release 24hr 37.5 mg PO DAILY Qty: 7 0RF Rx Instructions: Venlafaxine Taper 112.5 mg daily 06/28-07/05 75 mg daily 07/06-07/13 37.5 mg daily 07/14-07/21 venlafaxine 75 mg capsule,extended release 24hr 75 mg PO DAILY Qty: 7 0RF Rx Instructions: Venlafaxine tapering 112.5mg daily 06/28-07/05 75 mg daily 07/06-07/13 37.5 mg daily 07/14-07/21 venlafaxine 37.5 mg capsule,extended release 24hr 37.5 mg PO DAILY Qty: 7 0RF Rx Instructions: Venlafaxine tapering 112.5 mg daily 06/28-07/05 75 mg daily 07/06-07/13 37.5 mg daily 07/14-07/21 Continued clonidine HCl 0.1 mg tablet 0.1 mg PO TID Qty: 90 0RF lisinopril 5 mg tablet 5 mg PO DAILY Qty: 30 0RF Discontinued buspirone 10 mg Tablet 10 mg PO BID atomoxetine 40 mg capsule 40 mg PO DAILY Sublocade 300 mg/1.5 mL solution, extended rel syringe 300 mg subcut QMONTH Patient Comments: last take 06/10/23 Discharge Orders: Discharge Order (Routine); Ordered 06/27/23 Ordered By: Pamela Borja Diet: Advance to usual diet Activity on Discharge: As tolerated Stand Alone Forms: Patient Portal Discharge page, Community Support Care Plan Goals: Mood and Behavioral Stabilization Work on Sobriety Health Concerns: Mood and Behavioral Stabilizaiton Sobriety Plan of Treatment: Attend scheduled appointments Take medications as directed Venlafaxine taper requested by pt. 112.5 mg daily (one 75 mg tab and one 37.5 mg tab) 06/28-07/05 75 mg daily 07/06-07/13 37.5 mg daily 07/14-07/21 Assessment: No SI, HI, sx of darrius, sx of psychosis Discharge Date/Time: 06/27/23 11:09
== END 2023-06-27 11:09 | disposition home or self-care (01) | DRG 751 ==
PROVIDERS: Psychiatry & Neurology Psychiatry; Admitting Provider Psychiatry & Neurology Psychiatry; Visit Provider Clinical Nurse Specialist Psychiatric/Mental Health, Adult
DX: F33.2 Major depressive disorder, recurrent severe without psychotic features (principal); F10.20 Alcohol dependence, uncomplicated; I10 Essential (primary) hypertension; I45.6 Pre-excitation syndrome; F17.210 Nicotine dependence, cigarettes, uncomplicated; F14.20 Cocaine dependence, uncomplicated; F43.10 Post-traumatic stress disorder, unspecified; Z71.6 Tobacco abuse counseling; Z79.899 Other long term (current) drug therapy
CPT/HCPCS: 36415; 80053; 80061; 82607; 82746; 83036; 84443; 85025; 93005

== ENCOUNTER → 2023-06-16 18:04 | Outpatient (BNV) | payer OTHER, SELFPAY | PROVIDERS: Admitting Provider Psychiatry & Neurology Psychiatry; Visit Provider Psychiatry & Neurology Psychiatry | DX: F33.2 Major depressive disorder, recurrent severe without psychotic features (principal); F14.10 Cocaine abuse, uncomplicated; F10.20 Alcohol dependence, uncomplicated; F43.11 Post-traumatic stress disorder, acute | CPT/HCPCS: 90792; 99231; 99232; 99239 ==

== ENCOUNTER → 2023-06-16 18:04 | Outpatient (BNV) | payer OTHER, SELFPAY | PROVIDERS: Admitting Provider Psychiatry & Neurology Psychiatry; Visit Provider Student in an Organized Health Care Education/Training Program | DX: Z02.2 Encounter for examination for admission to residential institution (principal) | CPT/HCPCS: 99429 ==

== ENCOUNTER 2025-08-23 21:59 | Inpatient (IN) | payer OTHER, SELFPAY ==
--- NOTE | ~2025-08-23 | XR_ITS ---
EXAMINATION: Thoracic and lumbar spine. CLINICAL INDICATION: Fall. Pain. COMPARISON: None. FINDINGS: LUMBAR SPINE 3 VIEWS: There is maintained lumbar lordosis. The vertebral heights, alignment and disc heights are normal. There is no visible acute fracture, lytic or sclerotic process seen. SI joints are symmetrical and normal. DORSAL SPINE 3 VIEWS: There is normal thoracic kyphosis. The vertebral heights, alignment and disc heights are normal. No visible acute fracture, dislocation or subluxation seen. The paravertebral soft tissues are normal. XR/XR thoracic spine 3V IMPRESSION: Unremarkable lumbar spine exam. Unremarkable dorsal spine exam. Electronically signed by: Mynor Byrd MD 08/30/2025 01:54 PM EST
--- NOTE | ~2025-08-23 | XR_ITS ---
EXAMINATION: Thoracic and lumbar spine. CLINICAL INDICATION: Fall. Pain. COMPARISON: None. FINDINGS: LUMBAR SPINE 3 VIEWS: There is maintained lumbar lordosis. The vertebral heights, alignment and disc heights are normal. There is no visible acute fracture, lytic or sclerotic process seen. SI joints are symmetrical and normal. DORSAL SPINE 3 VIEWS: There is normal thoracic kyphosis. The vertebral heights, alignment and disc heights are normal. No visible acute fracture, dislocation or subluxation seen. The paravertebral soft tissues are normal. XR/XR lumbar spine 2-3V IMPRESSION: Unremarkable lumbar spine exam. Unremarkable dorsal spine exam. Electronically signed by: Mynor Byrd MD 08/30/2025 01:54 PM EST
[2025-08-23 22:06] VITALS: BP 133/70; PULSE 88; RESP 18; TEMP 37.2; O2SAT 96; BMI 27.9
[2025-08-23 22:44] LABS: Appearance Urine Clear; Glucose Urine UA Negative (Negative); PH 5.0 (5.0-9.0); Specific Gravity - Urine 1.025 (1.005-1.025)
[2025-08-23 22:48] LABS: Hematocrit 44.7 % (42.0-52.0); Hemoglobin 14.5 g/dl (14.0-18.0); Imm Gran Abs Auto 0.10 X10*3/uL (0.00-0.03); Imm Gran Pct Auto 0.7 % (0.0-0.4); Lymphocytes Absolute Auto 1.0 X10*3/uL (1.2-4.9); Mean Corpuscular HGB Conc 32.4 g/dl (31.0-36.0); Mean Corpuscular Hemoglobin 27.0 pg (27.0-33.0); Mean Corpuscular Volume 83.2 fL (80.0-98.0); NRBC Abs Auto 0.000 X10*3/uL (0.0-0.012); NRBC Pct Auto 0.0 /100WBC (0.0-0.2); PLT CLUMP 1; Red Blood Count 5.37 X10*6/uL (4.60-5.80); SCAN SMEAR FLAG 1
[2025-08-23 22:50] LABS: Cannabinoid Screen Urine POSITIVE (Not Detect)
--- OUTSIDE RECORDS SUMMARY | 2025-08-23 22:51 | XMS_ITS | Clinical Summary ---
Author Organization [facility] ity Address [address] [place] [address] Care Team Providers Care Prosthetic Aides Teacher Name Role Phone Koki Piña MD Primary Care Provider Unavail able Social History Tobacco Use Types Packs/Day Years Used Date Smoking Tobacco: Never Assessed Sex and Gender Information Value Date Recorded Sex Assigned at Not on file Legal Sex Male 10:00 PM EST Gender Identity Not on file Sexual Orientation Not on file Plan of Treatment Health Maintenance Due Date Last Done Comments DTaP,Tdap,and Td Vaccines (1 - Tdap) 2010 Hepatitis B Vaccines (1 of 3 - 19+ 3-dose series) 2010 HPV Vaccines (1 - 3-dose SCD M series) 2018 HIV Screening 08/07/2022 Hepatitis C Screening 08/07/2022 Social Influencers of Health Screening 08/07/2022 Depression Screening 09/05/2024 COVID-19 Vaccine (1 - 2024-2 6 season) 2025 Influenza Vaccine (#1) 2025 RSV Immunization Adult Patie nts (1 - 1-dose 75+ series) 2066 HIB Vaccines Aged Out No longer eligi ble based on patient's age to complete this topic Hepatitis A Vaccines Aged Out No long er eligible based on patient's age to complete this topic IPV Vaccines Aged Out No longer eligi ble based on patient's age to complete this topic MMR Vaccines Aged Out No longer eligi ble based on patient's age to complete this topic Meningococcal ACWY Vaccine Aged Out N o longer eligible based on patient's age to complete this topic Meningococcal B Vaccine Aged Out No l onger eligible based on patient's age to complete this topic Pneumococcal Vaccine: Pediat rics (0 to 5 Years) and At-Risk Patients (6 to 49 Years) Aged Out No longer eligible b ased on patient's age to complete this topic RSV Immunization Patients Un jhon 20 months Aged Out No longer eligible b ased on patient's age to complete this topic Varicella Vaccines Aged Out No longer eligible based on patient's age to complete this topic Care Teams Prosthetic Aides Teacher Relationship Specialty Start Date End Date Koki Piña MD PCP - General Internal Medicine 08/04/20
[2025-08-23 22:53] LABS: Alanine Aminotransferase 15 U/L (0-40); Albumin Level 4.3 g/dL (3.5-5.0); Alkaline Phosphatase 83 U/L (39-117); Anion Gap 14 (12-20); Aspartate Amino Transferase 24 U/L (5-37); Blood Urea Nitrogen 9 mg/dL (9-16); Calcium 9.7 mg/dL (8.4-10.2); Carbon Dioxide 25 mmol/L (22-29); Chloride 104 mmol/L (96-108); Creatinine Clr Calc Pharmacy 122.3; Estimated Glomerular Filt Rate > 60; Lipase 16 U/L (8-78); Magnesium 1.7 mg/dL (1.6-2.6); Potassium 4.3 mmol/L (3.3-5.1); Sodium 139 mmol/L (135-145); Total Protein 7.0 g/dL (6.5-8.0)
[2025-08-23 23:07] LABS: MANUAL DIFF FLAG NO; Platelet Count 338 X10*3/uL (160-400); White Blood Count 13.5 X10*3/uL (4.8-10.8)
--- NOTE | 2025-08-23 23:24 | PC.NURSE ---
Addendum entered by Marlin Pino RN 08/23/25 23:55: Clarification: Patient reports he is not taking any psychiatric medications. Reports it's been at least 1 year since. Original Note: automobile seat cover installer completed in the Main. Patient endorses passive +SI, states I get like this around this time of the year. I'm not sure if it's seasonal depression or because of the holidays. Denies HI/AVH. Endorses daily alcohol use. Reports he drinks a Liter of Vodka a day. Denies hx of ETOH WD/SZ. Last drink was around 4pm today. Reports he's been admitted to detox about 8 times. Regarding substances, reports he relapsed off Heroin after being 3 years clean. Used around noontime today. Reports he also huffed nitrous around noontime today too, does not use regularly. Smokes marijuana daily. Not currently taking any meds, has been at least 1 year. No PCP, no therapist. Endorses 2/10 chronic back pain that intensifies when standing, controlled well with Motrin. Reports he has high blood pressure, but does not take medication for it. 15 minute safety checks in place. Continue plan for medical clearance and CARE Team EVAL.
--- NOTE | 2025-08-23 23:55 | PC.NURSE ---
Patient requesting PRN for sleep. MD Robles made aware, given Melatonin.
[2025-08-24 00:56] VITALS: BP 161/57; PULSE 73; RESP 16; O2SAT 96
[2025-08-24 01:03] VITALS: TEMP 37.4
--- NOTE | 2025-08-24 01:05 | PC.NURSE ---
Patient requesting Methadone for Heroin withdrawal. Became verbally agitated and threatening to call 911 on staff. Tells t/w he's gonna from withdrawal without it. MD Robles made aware, x1 order for 30mg Methadone obtained/administered.
--- NOTE | 2025-08-24 01:07 | ED_ITS ---
HPI - Psych General Chief Complaint: Psychiatric Symptoms Stated Complaint: SI Time Seen by Provider: 08/23/25 22:57 History of Present Illness HPI Narrative: Patient is a 35-year-old male with suicidal thoughts. Patient has been using heroin on a regular basis. Last use heroin at 14:00. Also drinks alcohol on a regular basis. He feels very anxious very depressed. Has suicidal thoughts but no specific plans. Patient states no one wants him around. Came in for further evaluation. Related Data Home Medications ?Medication ?Instructions ?Recorded ?Confirmed No Known Home Meds 08/24/25 08/24/25 Allergies Allergy/AdvReac Type Severity Reaction Status Date / Time No Known Allergies Allergy Verified 08/23/25 22:09 Review of Systems 2 Review of Systems: Positive SI. Positive recreational drug use positive alcohol positive cocaine use Yes all other systems are reviewed and are negative [facility] Past Medical History Attestation statement: The following information was validated with the patient. Medical History Cocaine use disorder Alcohol dependence PTSD (post-traumatic stress disorder) MDD (major depressive disorder), recurrent severe, without psychosis Social History Social History Household Members: Family Housing: Other Do you presently have visiting nurse or other home services: No Alcohol intake: current Alcohol intake frequency: other Alcohol type: hard liquor Patient Tobacco Use Status: Current everyday Tobacco user Tobacco use type: Cigarette Cigarette Packs Per Day: 2 Cigarettes Per Day: 40.0 e-Cigarette/Vaping Use: Never Used Second Hand Smoke Exposure: No Use of substances other than those prescribed or required for medical reasons: Yes Substance Use Type: Heroin, Inhalants and Marijuana Last Used Substance: Just Prior to Admission Any prior treatment program specific to substance use: Yes (reports he's been to detox 8 times) Advance Directives: No Advance Directives Information Provided: No Do you have a plan to hurt others: No Plan service: No Sexual orientation: Straight/Heterosexual Physical Exam 2 Exam: Exam: Appearance: Alert. Oriented X3. No acute distress. Eyes: Pupils equal, round and reactive to light. ENT: Pharynx normal. Neck: Normal inspection. Neck supple. No lymph nodes noted. No crepitus CVS: Normal heart rate and rhythm. Pulses normal. Normal S1 and S2 Respiratory: No respiratory distress. Breath sounds normal. No Wheezing. No rales Abdomen: Soft and nontender. No rigidity. No distention. good BS x4 Skin: Skin warm and dry. Normal skin color. Normal skin turgor. Extremities: No lower extremity edema. Neurovascular intact to all extremities. No Lacerations. No Rash Neuro: Oriented X 3. No motor deficit. No sensory deficit. Moving all extermities. No slurred speech. Cranial nerves grossly intact Vital Signs: Vital Signs: Last Vital Signs Temp 97.9 F 08/26/25 06:43 Pulse 68 08/26/25 06:43 Resp 16 08/26/25 06:43 BP 140/67 H 08/26/25 06:43 Pulse Ox 95 08/26/25 06:43 O2 Del Method Room Air 08/26/25 06:43 BMI result Body Mass Index 27.9 Course Reevaluation(s) Reevaluation #1: 11:44 AM 08/24/2025 (Johnson De La Cruz MD): Time: 11:44 Date: 08/24/25 Provider: Pradeep De La Cruz MD Patient in physician observation for psychiatric evaluation.? No acute events reported overnight. The patient is complaining of feeling as if he is in opioid withdrawal. He claims that he last used heroin yesterday. Early this morning he was given a dose of 30 mg of methadone even though he is not normally on methadone. The patient is again complaining of feeling as if he has an opioid withdrawal although his vital signs are quite normal. I have ordered 50 mg of oral diphenhydramine and 0.1 mg of oral clonidine. the patient has been seen by the care team and recommendation is for a dual diagnosis bed search because of the patient's substance use issues and because of his complaint of depression and suicidality. The patient is on a section 12. A bed search is underway. Will continue to monitor. Time: 05:09 Date: 08/25/25 Provider: Tevin Terry MD Patient in physician observation for psychiatric evaluation.? Patient complaining of feeling hot, cold, chills and anxious. Patient does use heroin daily and drinks alcohol daily. Patient was treated with methadone 30 mg yesterday and 30 mg orally at 00:30 hours. I ordered CIWA q.4 hours, methadone 30 mg daily to start tomorrow and Ativan 2 mg every 4 hours as needed for agitation or withdrawal.. Vital signs revealed an elevated blood pressure of 170/94 otherwise unremarkable.? Patient is in bed search status (dual diagnosis bed) . Will continue to monitor. Time: 06:20 Date: 08/26/25 Provider: Alesia Kennedy DO Patient in physician observation for psychiatric evaluation.? No acute events reported overnight. No current complaints. VS stable.? Patient is in bed search status. Will continue to monitor. Time: 12:04 Date: 08/26/25 Provider: Alesia Kennedy DO Physician observation ended at 1204pm. Patient to be admitted as inpatient to psychiatry. Time: 11:47 Medications Administered Generic Name Dose Route Start Last Admin Trade Name Freq PRN Reason Stop Dose Admin Lorazepam 2 mg 08/25/25 05:12 08/26/25 09:32 Lorazepam 1 Mg Tablet PO 2 mg Q4H PRN Administration Restlessness/Withdrawal Methadone HCl 30 mg 08/26/25 09:00 08/26/25 08:30 Methadone Hcl 20 Mg/2 Ml Oral.Conc PO 30 mg DAILY SUDHIR Administration Discontinued Medications Generic Name Dose Route Start Last Admin Trade Name Freq PRN Reason Stop Dose Admin Acetaminophen 975 mg 08/24/25 10:03 08/24/25 10:16 Acetaminophen 325 Mg Tablet PO 08/24/25 10:04 975 mg ONCE ONE Administration Clonidine HCl 0.1 mg 08/24/25 10:27 08/24/25 10:37 Clonidine Hcl 0.1 Mg Tablet PO 08/24/25 10:28 0.1 mg ONCE ONE Administration Protocol Clonidine HCl 0.1 mg 08/25/25 05:18 08/25/25 06:05 Clonidine Hcl 0.1 Mg Tablet PO 08/25/25 05:19 0.1 mg ONCE ONE Administration Protocol Diphenhydramine HCl 50 mg 08/24/25 10:27 08/24/25 10:39 Diphenhydramine Hcl 25 Mg Capsule PO 08/24/25 10:28 50 mg ONCE ONE Administration Hydroxyzine HCl 25 mg 08/25/25 05:01 08/25/25 06:05 Hydroxyzine Hcl 25 Mg Tablet PO 08/25/25 05:02 25 mg ONCE ONE Administration Melatonin 6 mg 08/23/25 23:55 08/24/25 00:10 Melatonin 3 Mg Tablet PO 08/23/25 23:56 6 mg ONCE ONE Administration Methadone HCl 30 mg 08/24/25 01:04 08/24/25 01:17 Methadone Hcl 20 Mg/2 Ml Oral.Conc PO 08/24/25 01:05 30 mg ONCE ONE Administration Methadone HCl 30 mg 08/25/25 01:00 08/25/25 00:33 Methadone Hcl 20 Mg/2 Ml Oral.Conc PO 08/25/25 01:01 30 mg ONCE ONE Administration Ondansetron HCl 4 mg 08/24/25 10:03 08/24/25 10:16 Ondansetron Odt 4 Mg Tab.Rapdis TRANSLINGU 08/24/25 10:04 4 mg ONCE ONE Administration Ondansetron HCl 4 mg 08/25/25 00:30 08/25/25 00:33 Ondansetron Odt 4 Mg Tab.Rapdis TRANSLINGU 08/25/25 00:31 4 mg ONCE ONE Administration Ondansetron HCl 4 mg 08/25/25 03:51 08/25/25 06:12 Ondansetron Odt 4 Mg Tab.Rapdis TRANSLINGU 08/25/25 03:52 Not Given ONCE ONE Medical Decision Making Medical Decision Making MDM Narrative: Vague suicidal thoughts will require psychiatric evaluation currently in no distress. Differential Diagnosis Differential Diagnoses: The differential diagnosis associated with the presentation includes SI, polysubstance abuse Admission/Observation Consideration of admission/observation: Escalation of care including admission/observation considered Consult Healthcare Provider Management of the patient was discussed with: Field Project Manager (Care team) and Behavioral Health Provider Lab Data MDM Lab Attestation statement: I reviewed the patient's lab results. 08/23/25 22:26 08/23/25 22:26 Labs: Lab Results 08/23/25 08/24/25 Range/Units 22:26 01:13 WBC 13.5 H (4.8-10.8) X10*3/uL RBC 5.37 (4.60-5.80) X10*6/uL Hgb 14.5 (14.0-18.0) g/dl Hct 44.7 (42.0-52.0) % MCV 83.2 (80.0-98.0) fL MCH 27.0 (27.0-33.0) pg MCHC 32.4 (31.0-36.0) g/dl RDW 15.2 (11.0-16.0) % Plt Count 338 (160-400) X10*3/uL MPV Not Reportable Immature Gran % (Auto) 0.7 H (0.0-0.4) % Neut % (Auto) 83.5 H (45-73) % Lymph % (Auto) 7.0 L (20-40) % [place] % (Auto) 7.3 (2-11) % Eos % (Auto) 1.0 (0-4) % Baso % (Auto) 0.5 (0-2) % Lymph # (Auto) 1.0 L (1.2-4.9) X10*3/uL [place] # (Auto) 1.0 (0.1-1.2) X10*3/uL Eos # (Auto) 0.1 (0.0-0.4) X10*3/uL Baso # (Auto) 0.1 (0.0-0.2) X10*3/uL Abs Immat Gran (auto) 0.10 H (0.00-0.03) X10*3/uL Absolute Neuts (auto) 11.2 H (2.0-8.3) x10*3/uL Absolute Nucleated RBC 0.000 (0.0-0.012) X10*3/uL Nucleated RBC % (auto) 0.0 (0.0-0.2) /100WBC Sodium 139 (135-145) mmol/L Potassium 4.3 (3.3-5.1) mmol/L Chloride 104 (96-108) mmol/L Carbon Dioxide 25 (22-29) mmol/L Anion Gap 14 (12-20) BUN 9 (9-16) mg/dL Creatinine 1.01 (0.5-1.4) mg/dL Estim Creat Clear Calc 122.3 Estimated GFR > 60 Random Glucose 98 (60-115) mg/dL Calcium 9.7 D (8.4-10.2) mg/dL Magnesium 1.7 (1.6-2.6) mg/dL Total Bilirubin 0.8 (0.0-1.0) mg/dL AST 24 (5-37) U/L ALT 15 (0-40) U/L Alkaline Phosphatase 83 (39-117) U/L Total Protein 7.0 (6.5-8.0) g/dL Albumin 4.3 (3.5-5.0) g/dL Lipase 16 (8-78) U/L Urine Color Yellow Urine Appearance Clear Urine pH 5.0 (5.0-9.0) Ur Specific [place] 1.025 (1.005-1.025) Urine Protein Trace (Neg-Trace) mg/dL Urine Glucose (UA) Negative (Negative) mg/dL Urine Ketones Trace (Negative) mg/dL Urine Blood Negative (Negative) Urine Nitrite Negative (Negative) Ur Leukocyte Esterase Negative (Negative) Urine Opiates Screen POSITIVE H (Not Detect) Ur Buprenorphine Scrn Positive H (Not Detect) ng/mL Ur Oxycodone Screen Not Detected (Not Detect) ng/mL Urine Methadone Screen Not Detected (Not Detect) ng/mL Urine Fentanyl Screen POSITIVE H (Not Detect) Ur Barbiturates Screen Not Detected (Not Detect) Ur Phencyclidine Scrn Not Detected (Not Detect) Ur Amphetamines Screen Not Detected (Not Detect) U Benzodiazepines Scrn Not Detected (Not Detect) Urine Cocaine Screen POSITIVE H (Not Detect) U Marijuana (THC) Screen POSITIVE H (Not Detect) Ethyl Alcohol 18 mg/dL Influenza Type A (PCR) NEGATIVE (Negative) Influenza Type B (PCR) NEGATIVE (Negative) RSV RNA Qual (PCR) NEGATIVE (Negative) SARS-CoV-2 RNA (RT-PCR) NEGATIVE (Negative) Discharge Plan Discharge Clinical Impression: MDD (major depressive disorder), recurrent severe, without psychosis Patient Disposition: Admitted As Inpatient Interventions: [place]-Suicide Risk Severity Scale Last Done: 08/25/25 23:00 Print Language: Kinyarwanda
[2025-08-24] MEDS: methADONE HCl 20 MG/2 ML ORAL.CONC 30 MG PO (01:17)
[2025-08-24 01:55] LABS: Resp Syncy Virus RNA Qual PCR NEGATIVE (Negative); SARS COV2 PCR INHOUSE NEGATIVE (Negative)
[2025-08-24 06:29] VITALS: RESP 16
--- NOTE | 2025-08-24 07:54 | PC.NURSE ---
Assumed care, report received. Pt is awake, VSS, HR-60, No evidence of tremors, he is currently sitting on his bed.
[2025-08-24 07:57] VITALS: BP 159/85; PULSE 60; RESP 18; TEMP 36.3; O2SAT 100
--- NOTE | 2025-08-24 08:06 | PHA.MEDREC ---
Pharmacy Consult ? Medication Reconciliation Pharmacy has completed the medication reconciliation. No meds per nursing
--- NOTE | 2025-08-24 08:25 | MHC.CARE ---
Pt will be a Dual DX bedsearch
--- NOTE | 2025-08-24 10:49 | PC.NURSE ---
Pts mother calls, stating her son is in withdrawal. She is informed the MD is aware and meds have been ordered. Pt is angry he is not being given Methadone and states I need to be transferred. He is informed medications have been provided to treat his symptoms. Pt stays in his room watching TV, pacing and laying down.
[2025-08-24 15:11] VITALS: BP 153/85; PULSE 58; RESP 16; TEMP 36.6; O2SAT 98
--- NOTE | 2025-08-24 18:16 | PC.NURSE ---
Pt spends time in his room, watching TV and to the bathroom. He continues to call his mother complaining he is in the wrong place. Pts mother called again to ask about his withdrawal symptoms. SHe is told his symptoms are being managed. Pts HR 58, RR 18, skin is pink, warm and dry, no tremors noted. He tolerates small amounts to his meals.
[2025-08-24 21:21] VITALS: BP 152/79; PULSE 62; RESP 20; TEMP 37.1; O2SAT 98
[2025-08-25] MEDS: methADONE HCl 20 MG/2 ML ORAL.CONC 30 MG PO (00:33)
[2025-08-25 03:53] VITALS: BP 170/94; PULSE 62; RESP 17; TEMP 36.5; O2SAT 99
--- NOTE | 2025-08-25 04:05 | PC.NURSE ---
Assumed care at 1845. Patient presents as calm and cooperative. Reports he is withdrawing from alcohol and seeking more Methadone. MD Costello made aware, given 30mg Methadone. Observed gagging/retching multiple times d/t nausea. No vomiting observed, but endorses nausea. Given PRN Zofran.
--- NOTE | 2025-08-25 04:58 | PC.NURSE ---
Pt is pacing in the milieu stating he feels very uncomfortable hot, cold, chills, anxiety States he thinks he is withdrawing. Methadone 30mg given at 0030. Pt not usually on Methadone but would like something for comfort at this time. [place] text sent to . No new orders at time.
--- NOTE | 2025-08-25 06:12 | PC.NURSE ---
Spoke with MD Waters about patient c/o's withdrawing. Order for PRN Vistaril and Clonidine obtained for comfort.
[2025-08-25 14:29] VITALS: BP 126/63; PULSE 60; RESP 16; TEMP 36.9; O2SAT 97
[2025-08-25 20:44] VITALS: BP 116/52; PULSE 60; RESP 16; TEMP 37; O2SAT 98
--- NOTE | 2025-08-25 22:50 | PC.NURSE ---
Assumed care at 1845. Patient currently asleep. Rise and fall of chest observed. Cooperative with HS VS. No HS scheduled medications. Will continue to monitor for safety.
--- NOTE | 2025-08-25 23:58 | PC.NURSE ---
Patient OOB. Appears moderately anxious and restless. Observed tossing/turning in bed before approaching nurses station. CIWA of 5. Utilized PRN Ativan. Returned to room. Plan of care ongoing.
[2025-08-26 06:43] VITALS: BP 140/67; PULSE 68; RESP 16; TEMP 36.6; O2SAT 95
--- NOTE | 2025-08-26 07:38 | PC.NURSE ---
Assumed care of patient at 0645, patient appears to be in no apparent distress this am, resting in bed, respirations even and unlabored. Continue plan of care for CARE team chance
--- NOTE | 2025-08-26 07:51 | ECG_ITS ---
Test Reason : ro qtc Blood Pressure : */* mmHG Vent. Rate : 78 BPM Atrial Rate : 78 BPM P-R Int : 150 ms QRS Dur : 104 ms QT Int : 384 ms P-R-T Axes : 82 76 49 degrees QTcB Int : 437 ms Normal sinus rhythm with sinus arrhythmia Right atrial enlargement Borderline ECG When compared with ECG of 23-Jun-2023 09:43, No significant change was found Referred By: Essence Costello Electronically Signed By: MOE VALENCIA MD
[2025-08-26] MEDS: methADONE HCl 20 MG/2 ML ORAL.CONC 30 MG PO (08:30)
[2025-08-26 13:28] VITALS: BP 125/71; PULSE 79; RESP 16; O2SAT 97
[2025-08-26 13:58] VITALS: BP 165/93; PULSE 75; RESP 18; TEMP 36.9; O2SAT 99; BMI 26.1
[2025-08-26 15:35] VITALS: BP 160/94; PULSE 78; RESP 18; TEMP 36.6; O2SAT 100
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
[2025-08-26 20:00] VITALS: BP 139/89; PULSE 81; RESP 17; RESP 18; TEMP 37.1; O2SAT 98
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
[2025-08-27 08:00] VITALS: BP 123/64; PULSE 66; RESP 18; TEMP 37.1; O2SAT 97
[2025-08-27] MEDS: methADONE HCl 20 MG/2 ML ORAL.CONC 30 MG PO (08:03)
[2025-08-27] MEDS: buPROPion HCl XL 150 MG TAB.ER.24H PO (08:05)
[2025-08-27] MEDS: Nicotine 21 MG PATCH.TD24 TRANSDERMA (08:06)
--- NOTE | 2025-08-27 09:44 | P.CONHOSP_ITS ---
History of Present Illness Data of Consult Service Date: 08/27/25 Primary Care Provider: Rochelle Physician HPI Reason for consult: Medical consult 35-year-old male with past medical history of MDD, alcohol use disorder, cocaine use disorder, PTSD and heroin use, presented to the emergency room with suicidal thoughts with no specific plan. Patient takes no medications at home. While in the ED patient reported signs of withdrawal. He was started on methadone in the emergency room despite this still reported symptoms of withdrawal. He was given oral diphenhydramine and clonidine at that time. Patient was found CIWA scale. His initial ED workup revealed mild leukocytosis likely related to cocaine use, no anemia, no electrolyte imbalances, no evidence of liver or renal dysfunction. Urinalysis was negative for infection, tox screen positive for opiates, fentanyl, cocaine and marijuana. Viral panel negative. On exam he has no medical concerns. Patient has a history of WPW. He states that he underwent an ablation more than 10 years ago and they were unable to find the area to ablate. He is not followed by a head teller. EKG revealed normal sinus rhythm with a sinus arrhythmia, right atrial enlargement. Unchanged from prior. Review of Systems 2 Review of Systems: Denies any shortness of breath, chest pain, headaches, dysuria, abdominal pain or discomfort, nausea, vomiting or diarrhea. Denies fever or chills. [facility] Medical History Cocaine use disorder Alcohol dependence PTSD (post-traumatic stress disorder) MDD (major depressive disorder), recurrent severe, without psychosis Social History Household Members: Other Household Members Other:: father Housing: House Do you presently have visiting nurse or other home services: No Alcohol intake: current Alcohol intake frequency: other Alcohol type: hard liquor Patient Tobacco Use Status: Current everyday Tobacco user Tobacco use type: Cigarette Cigarette Packs Per Day: 2 Cigarettes Per Day: 5 Smoked in Last 30 Days: Yes e-Cigarette/Vaping Use: Currently Using Frequency of e-Cigarette/Vaping Use: daily Patient Interested in Nicotine Replacement: Yes Patient Given Instructions on How to Stop Smoking: No Second Hand Smoke Exposure: No Use of substances other than those prescribed or required for medical reasons: Yes Substance Use Type: Heroin, Inhalants and Marijuana Last Used Substance: Just Prior to Admission Currently Displaying Signs/Symptoms of Drug Intoxication Withdrawal: No Any prior treatment program specific to substance use: Yes (reports he's been to detox 8 times) Have you been hit, kicked, punched, or otherwise hurt by someone within the past year? If so, by whom?: No Do you feel safe in your current relationship?: No Current Relationship Is there a partner from a previous relationship who is making you feel unsafe now?: No Are you made to feel afraid or neglected: No Advance Directives: No Advance Directives Information Provided: No Do you have thoughts of harming others: None Do you have a plan to hurt others: No Plan Recently lost weight without trying: No Eating poorly because of decreased appetite: No Nutrition Risks: No Nutritional Risk Poor oral hygiene: No service: No Sexual orientation: Straight/Heterosexual Meds Allergies Allergy/AdvReac Type Severity Reaction Status Date / Time No Known Allergies Allergy Verified 08/23/25 22:09 Active Medications: Current Medications Acetaminophen (Acetaminophen 325 Mg Tablet) 650 mg PO Q6H PRN PRN Reason: Headache/Pain, Scale 1-10 Al Hydroxide/Mg Hydroxide (Magnesium Hydrox/Alum Hydrox 30 Ml Oral.Susp) 30 ml PO Q6H PRN PRN Reason: Heartburn/Nausea Benzocaine (Throat Lozenge, Medicated Lozenge) 1 lozenge MUCOUS MEM Q2H PRN PRN Reason: Sore Throat Bupropion HCl (Bupropion Hcl Xl 150 Mg Tab.Er.24h) 150 mg PO DAILY SUDHIR Last Admin: 08/27/25 08:05 Dose: 150 mg Clonidine HCl (Clonidine Hcl 0.1 Mg Tablet) 0.1 mg PO TID PRN; Protocol PRN Reason: severe anxiety Guaifenesin (Guaifenesin 200 Mg/10 Ml 10 Ml Liquid) 10 ml PO Q4H PRN PRN Reason: Cough Hydroxyzine HCl (Hydroxyzine Hcl 25 Mg Tablet) 25 mg PO Q6H PRN PRN Reason: mild anxiety Last Admin: 08/26/25 20:05 Dose: 25 mg Lorazepam (Lorazepam 1 Mg Tablet) 2 mg PO Q2H PRN PRN Reason: CIWA 12-15 Lorazepam (Lorazepam 1 Mg Tablet) 1 mg PO Q2H PRN PRN Reason: CIWA 8-11 Last Admin: 08/27/25 05:59 Dose: 1 mg Magnesium Hydroxide (Milk Of Magnesia 30 Ml Oral.Susp) 30 ml PO DAILY PRN PRN Reason: Constipation Methadone HCl (Methadone Hcl 20 Mg/2 Ml Oral.Conc) 30 mg PO DAILY [facility] Last Admin: 08/27/25 08:03 Dose: 30 mg Nicotine (Nicotine 21 Mg Patch.Td24) 21 mg TRANSDERMA DAILY PRN PRN Reason: nicotine craving Last Admin: 08/27/25 08:06 Dose: 21 mg Nicotine Polacrilex (Nicotine Polacrilex 2 Mg Gum) 2 mg BUCCAL Q2H PRN PRN Reason: Nicotine Cravings Last Admin: 08/27/25 05:59 Dose: 2 mg Olanzapine (Olanzapine 5 Mg Tablet) 5 mg PO BID PRN PRN Reason: agitation Ondansetron HCl (Ondansetron Odt 4 Mg Tab.Rapdis) 4 mg TRANSLINGU Q6H PRN PRN Reason: Nausea and Vomiting Thiamine HCl (Thiamine Hcl 100 Mg Tablet) 100 mg PO DAILY [facility] Last Admin: 08/27/25 08:05 Dose: 100 mg Trazodone HCl (Trazodone Hcl 50 Mg Tablet) 50 mg PO BEDTIME MRX1 PRN PRN Reason: Insomnia Last Admin: 08/26/25 22:12 Dose: 50 mg Home Medications ?Medication ?Instructions ?Recorded ?Confirmed ?Last Taken ?Type No Known Home Meds 08/24/25 08/24/25 Un known History Physical Exam 2 Vital Signs and Narrative: Vital Signs: Last Vital Signs Temp 98.7 F 08/27/25 08:00 Pulse 66 08/27/25 08:00 Resp 18 08/27/25 08:00 BP 123/64 08/27/25 08:00 Pulse Ox 97 08/27/25 08:00 O2 Del Method Room Air 08/27/25 08:00 BMI result Body Mass Index 26.1 Appearance: Alert. Oriented X3. No acute distress. Eyes: Pupils equal, round and reactive to light. ENT: Moist mucous membranes CVS: Normal heart rate and rhythm. Pulses normal. Normal S1 and S2 Respiratory: No respiratory distress. Breath sounds normal. No Wheezing. Abdomen: Soft and nontender. No rigidity. No distention. good BS x4 Skin: Skin warm and dry. Color within normal limits Extremities: No lower extremity edema. Neuro: Oriented X 3. No motor deficit. No sensory deficit. Moving all extremities. No slurred speech. Cranial nerves grossly intact Results Labs 08/23/25 22:26 08/27/25 08:25 Labs: Laboratory Results - last 24 hr 08/27/25 08:25 Estimat Average Glucose 103 Hemoglobin A1c % 5.2 Assessment and Plan (1) Right atrial enlargement: Status: Acute (2) History of Ossqe-Rvkgapsgq-Lwwis (WPW) syndrome: Status: Acute Plan 35-year-old male with past medical history listed below presents to the ED with suicidal ideation. Now admitted for inpatient psychiatric stabilization. MDD/EtOH use disorder/polysubstance use disorder/PTSD Treatment per psychiatric team Addiction medicine consult History of WPW/Right atrial enlargement Echocardiogram Follow up with Cardiology if abnormal findings Abstain from cocaine use Thank you for allowing me to participate in the care of this patient. Will follow with you, please notify medical provider with any changes in condition or concerns.
[2025-08-27 09:58] LABS: Alanine Aminotransferase 17 U/L (0-40); Albumin Level 4.7 g/dL (3.5-5.0); Alkaline Phosphatase 85 U/L (39-117); Anion Gap 15 (12-20); Aspartate Amino Transferase 23 U/L (5-37); Blood Urea Nitrogen 11 mg/dL (9-16); Calcium 9.9 mg/dL (8.4-10.2); Carbon Dioxide 29 mmol/L (22-29); Chloride 102 mmol/L (96-108); Cholesterol 182 mg/dL (<200); Creatinine Clr Calc Pharmacy 110.9; Estimated Glomerular Filt Rate > 60; HDL Cholesterol 32 mg/dL (>40); Magnesium 2.3 mg/dL (1.6-2.6); Potassium 4.4 mmol/L (3.3-5.1); Sodium 142 mmol/L (135-145); Total Protein 7.8 g/dL (6.5-8.0); Triglycerides 83 mg/dL (<150)
[2025-08-27 10:07] LABS: Free T4 (Free Thyroxine) 1.17 ng/dL (0.71-1.85); Thyroid Stimulating Hormone 1.29 uIU/mL (0.32-4.0)
[2025-08-27 10:28] LABS: Folate 10.0 ng/mL (> or = 4.0); Vitamin B12 775 pg/mL (200-900)
[2025-08-27 11:28] VITALS: BP 138/92; PULSE 98; RESP 18; TEMP 36.6; O2SAT 98
--- NOTE | 2025-08-27 12:01 | HO.PSYCHPN ---
Subjective Subjective Date of Service: 08/27/25 Reason For Visit: SI Subjective Notes: Conditional Voluntary Interim History: Chart reviewed. Case discussed with team Addiction medicine consult ordered, pending Slept 6 hrs last night Received 2 mg lorazepam yesterday and 3 mg per CIWA. Pt reports feeling better since w/d sx have been managed. He slept well for the first night in a long time last night. Feels more rested and regulated today. Denies current SI. I'm not happy but not depressed . Ate better but taking it slowly to avoid making himself sick. He's had a low appetite for a while. Future oriented. 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 He takes 'Huge pride in his work. 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 Looks forward to working on his recovery and endorses regret for relapsing. Goal is to get connected w/ a PCP, a manager of disaster recovery and a therapist. Had good experience in the past w/ a manager of disaster recovery. Medication Compliance: Yes Mental Status Exam Mental Status Exam Narrative: Appearance: Casually dressed. Grooming/hygiene wnl. Good eye contact Attitude:Cooperative Speech: Fluent and wnl in regard to volume, tone, prosody Motor activity: Calm and without any tics, tremors or dyskinesias. Mood: as noted above Affect: appropriate, reactive, generally bright Thought process: goal directed and without evidence of formal thought disorder Thought content: as noted above. Future oriented Perception: Denies AH/VH and does not appear to respond to internal stimuli Alert/oriented in all spheres Cognition grossly intact Insight: intact Judgment: intact Diagnostics Vital Signs (24Hr): Vital Signs - 24 hr 08/26/25 13:28 08/26/25 13:58 08/26/25 15:35 Temperature 98.4 F 98 F Pulse Rate 79 75 78 Respiratory Rate 16 18 18 Blood Pressure 125/71 165/93 H 160/94 H Pulse Oximetry 97 99 100 Oxygen Delivery Method Room Air Room Air Room Air 08/26/25 20:00 08/26/25 20:00 08/27/25 08:00 Temperature 98.7 F 98.7 F 98.7 F Pulse Rate 81 81 66 Respiratory Rate 18 17 18 Blood Pressure 139/89 139/89 123/64 Pulse Oximetry 98 98 97 Oxygen Delivery Method Room Air Room Air 08/27/25 11:28 Temperature 98 F Pulse Rate 98 Respiratory Rate 18 Blood Pressure 138/92 H Pulse Oximetry 98 Oxygen Delivery Method Room Air BMI result Body Mass Index 26.1 Labs 08/23/25 22:26 08/27/25 08:25 Labs: Laboratory Results - last 48 hr 08/27/25 08:25 Sodium 142 Potassium 4.4 Chloride 102 Carbon Dioxide 29 Anion Gap 15 BUN 11 Creatinine 1.03 Estim Creat Clear Calc 110.9 Estimated GFR > 60 Random Glucose 94 Estimat Average Glucose 103 Hemoglobin A1c % 5.2 Calcium 9.9 Magnesium 2.3 Total Bilirubin 1.1 H AST 23 ALT 17 Alkaline Phosphatase 85 Total Protein 7.8 Albumin 4.7 Triglycerides 83 Cholesterol 182 LDL Cholesterol, Calc 134 H HDL Cholesterol 32 L Vitamin B12 775 Folate 10.0 TSH 1.29 Free T4 1.17 Medications Medications Current Medications Acetaminophen (Acetaminophen 325 Mg Tablet) 650 mg PO Q6H PRN PRN Reason: Headache/Pain, Scale 1-10 Last Admin: 08/27/25 11:32 Dose: 650 mg Al Hydroxide/Mg Hydroxide (Magnesium Hydrox/Alum Hydrox 30 Ml Oral.Susp) 30 ml PO Q6H PRN PRN Reason: Heartburn/Nausea Benzocaine (Throat Lozenge, Medicated Lozenge) 1 lozenge MUCOUS MEM Q2H PRN PRN Reason: Sore Throat Bupropion HCl (Bupropion Hcl Xl 150 Mg Tab.Er.24h) 150 mg PO DAILY SUDHIR Last Admin: 08/27/25 08:05 Dose: 150 mg Clonidine HCl (Clonidine Hcl 0.1 Mg Tablet) 0.1 mg PO TID PRN; Protocol PRN Reason: severe anxiety Guaifenesin (Guaifenesin 200 Mg/10 Ml 10 Ml Liquid) 10 ml PO Q4H PRN PRN Reason: Cough Hydroxyzine HCl (Hydroxyzine Hcl 25 Mg Tablet) 25 mg PO Q6H PRN PRN Reason: mild anxiety Last Admin: 08/26/25 20:05 Dose: 25 mg Lorazepam (Lorazepam 1 Mg Tablet) 2 mg PO Q2H PRN PRN Reason: CIWA 12-15 Lorazepam (Lorazepam 1 Mg Tablet) 1 mg PO Q2H PRN PRN Reason: CIWA 8-11 Last Admin: 08/27/25 11:32 Dose: 1 mg Magnesium Hydroxide (Milk Of Magnesia 30 Ml Oral.Susp) 30 ml PO DAILY PRN PRN Reason: Constipation Methadone HCl (Methadone Hcl 20 Mg/2 Ml Oral.Conc) 30 mg PO DAILY SUDHIR Last Admin: 08/27/25 08:03 Dose: 30 mg Nicotine (Nicotine 21 Mg Patch.Td24) 21 mg TRANSDERMA DAILY PRN PRN Reason: nicotine craving Last Admin: 08/27/25 08:06 Dose: 21 mg Nicotine Polacrilex (Nicotine Polacrilex 2 Mg Gum) 2 mg BUCCAL Q2H PRN PRN Reason: Nicotine Cravings Last Admin: 08/27/25 11:33 Dose: 2 mg Olanzapine (Olanzapine 5 Mg Tablet) 5 mg PO BID PRN PRN Reason: agitation Ondansetron HCl (Ondansetron Odt 4 Mg Tab.Rapdis) 4 mg TRANSLINGU Q6H PRN PRN Reason: Nausea and Vomiting Thiamine HCl (Thiamine Hcl 100 Mg Tablet) 100 mg PO DAILY SUDHIR Last Admin: 08/27/25 08:05 Dose: 100 mg Trazodone HCl (Trazodone Hcl 50 Mg Tablet) 50 mg PO BEDTIME MRX1 PRN PRN Reason: Insomnia Last Admin: 08/26/25 22:12 Dose: 50 mg Allergies Allergies Allergy/AdvReac Type Severity Reaction Status Date / Time No Known Allergies Allergy Verified 08/23/25 22:09 Assessment & Plan Assessment & Plan (1) Depressive disorder: Status: Acute Code(s): F32.A - Depression, unspecified (2) Alcohol dependence: Status: Acute Code(s): F10.20 - Alcohol dependence, uncomplicated (3) Cocaine use disorder: Status: Acute Code(s): F14.10 - Cocaine abuse, uncomplicated (4) Alcohol use disorder, moderate, dependence: Status: Acute Code(s): F10.20 - Alcohol dependence, uncomplicated (5) PTSD (post-traumatic stress disorder): Status: Acute Code(s): F43.10 - Post-traumatic stress disorder, unspecified (6) MDD (major depressive disorder), recurrent severe, without psychosis: Status: Acute Code(s): F33.2 - Major depressive disorder, recurrent severe without psychotic features Plan Pt is a 35 y/o, single, Urdu Speaking, male with hx of depression, anxiety and polysubstance used disorders who is previously unknown to the CARE Team. On 08/24/25 patient arrived at the ED via ambulance with a complaint of vague SI with no plan brought on by the Holidays and seasonal depression, as well as claims no one wants him around, and polysubstance use. Pt has been medically cleared and is being assessed by the CARE Team to determine appropriate treatment which patient was found to be appropriate for Psychoatric admission to manage his depression and anxiety symptoms as well as address any associated symptoms from substance use. Hospital course: 08/26/25: Discussed with patient regarding antidepressants, patient was reluctant to start on antidepressant due to history of having sexual drive decrease as a side effects from Effexor. However, he was prescribed Wellbutrin in the past with good effect. Therefore we will start him on Wellbutrin XL 150 mg daily in the morning. Indication and possible side effects review with patient. Clonidine 0.1 t.i.d. PRNs for severe anxiety. Hydroxyzine 25 mg for anxiety. On protocol for CIWA withdrawal with Ativan PRNs. Methadone 30 mg daily. Patient would like to see the addiction team regarding his methadone dose. Zofran PRNs nauseous and vomiting. Robitussin p.r.n. for congestion. Zyprexa 5 mg b.i.d. PRNs for severe agitation. Trazodone p.r.n. with a repeat dose for insomnia. 08/27: Mood/sleep improved, w/d sx significantly improved. Denies SI. Future oriented. Continue current med regimen Plan Patient on 15 minute checks for safety. Admitted to . CV. Work with treatment team to do collateral for CSS/CCS if possible for aftercare. Refer to patient to cash management specialist: Pending Dialogue caustic and discharge planning. U tox positive for opiate, Suboxone, fentanyl, cocaine, and marijuana. BAL was 18 on arrival on 08/23/25. U/A negative.EKG: Normal sinus rhythm with sinus arrhythmia. Right atrial enlargement. Borderline ECG. When compared with ECG of 23-Jun-2023 09:43, No significant change was found Patient educated on: diagnosis, medication risk/benefits, substance abuse and therapeutic strategies Informed Consent: understands Reason for continued inpatient stay Substantial Risk for: med/psych decompensation Time Spent With Patient Time: Total time managing care of this patient today ____ minutes.
[2025-08-27 12:47] VITALS: BP 137/85
--- NOTE | 2025-08-27 14:07 | MHC.RECOVRN ---
Pt is a 35-y/o Kyrgyz-speaking single male with depression, anxiety, and polysubstance use disorder who is admitted to for SI and seasonal depression.? Met with pt in 50- after receiving an addiction consult for evaluation of OUD and provision of resources/education. He reports that about 3 months ago he had a recurrence of opiate use after a 3 year period of sobriety. Since then pt has been using 1-2 bundles of fentanyl daily via the IV route.? Per pt, precipitants of this recurrence? include seasonal depression and guilt with holidays coming up. Pt states he started using opiates when he was 11 years old and his father had ?pill bottles all around the house?. Over the years his use progressed from ?crushed pills to heroin? and later on IVDU.? Pt has also been using alcohol; recently ~1 L of vodka daily but has always drank ?on and off?.? Pt reports a history of 8 detox admissions, and various inpatient psych and dual dx treatment stays. He denies a history of opioid overdose. He reports a history of mental illness and AISHA on the maternal side of the family.? During our conversation pt denies feelings of withdrawal from both alcohol and opiates. 10, 4, 8 on CIWA. Pt has been initiated on methadone 30mg and states that his withdrawals are well-managed. He denies a need for methadone titration.?and states he would rather be tapered as he does not wish to be on methadone long-term. Declines referral to OTP. HIV/HCV risk factors for this pt? include substance use - especially IVDU as well as a hx of incarceration and gang-affiliation. Discussed other MOUD and pt is considering the buprenorphine injection which he has had in the past. Pt stated ?I?m not worried about relapsing again - I was able to stay clean for 3 years and can do it again?.? Discussed harm reduction , and treatment options. He is interested in a recovery coaching referral.? Pt declined VAL initiation and declined outpatient AISHA tx appointment at the [facility] , or OTP. Written materials on risk reduction strategies, treatment options, MOUD, VAL provided and reviewed with pt.? Pt wants to review the material further at his own time, and states that he will have a more concrete decision on MAT by tomorrow. He denies questions/concerns at this time.??
[2025-08-27 16:04] VITALS: BP 120/71; PULSE 87; RESP 18; TEMP 36.6; O2SAT 98
[2025-08-27 20:00] VITALS: BP 131/76; PULSE 70; RESP 18; TEMP 37.1; O2SAT 98
[2025-08-27 20:22] VITALS: BP 131/76
--- NOTE | 2025-08-28 07:00 | CA_ITS ---
Transthoracic Echocardiogram Patient (Last, First, Middle): Beto Gallegos, Gender: M Date of : 1990 Age: 35 Procedure Date: 08/28/2025 Procedure Type: Transthoracic Echocardiogram Location: M5 Height: 182.88 cm Weight: 87.09 kg BSA: 2.09 m2 Heart Rate: 63 bpm BP: 131 / 76 mmHg Tuber Machine Operator: DANA Referring MD: Mirna Toledo DNP Asphalt Roller Person: David Jimenez MD Symptoms: Left Atrial emlargement Study Quality: Adequate ECG Rhythm: Sinus Conclusions: - Normal study Findings Left Ventricle Normal left ventricular size, thickness, and systolic function. The visually estimated ejection fraction is between 60-65%. Diastolic function is normal for age. Right Ventricle Normal right ventricular cavity size and systolic function. Atria Both atria are normal in size. There is no evidence of interatrial shunt. Aortic Valve Normal aortic valve structure and function. There is no aortic valve stenosis. There is no aortic valve regurgitation. Mitral Valve Normal mitral valve structure and function. There is no mitral valve regurgitation. There is no mitral valve stenosis. Pulmonic Valve The pulmonic valve is likely normal. There is trace pulmonic valve regurgitation. Tricuspid Valve Normal tricuspid valve structure. Tricuspid regurgitation envelope is inadequate for calculation of right ventricular systolic pressure. Normal right atrial pressure. Great Vessels All visible segments of the aorta are normal in size. The visualized portions of the pulmonary artery and branches are normal. Venous The inferior vena cava is normal in size and collapses greater than 50% with inspiration. Pericardium/Pleural There is no evidence of pericardial effusion. Prior Study Comparison No prior study available for comparison. Measurements 2D Linear Measurements IVSd: 0.88 0.6-0.9/0.6-1.0 cm LVIDd: 5.70 3.9-5.3/4.2-5.9 cm LVIDd Index: 2.73 2.4-3.2/2.2-3.1 cm/m2 LVIDs: 4.05 2.0-3.6 cm LVPWd: 0.97 0.7-1.1 cm LA Diam: 3.90 2.7-3.8/3.0-4.0 cm LAIDs Index: 1.87 1.5-2.3 cm/m2 LV Mass: 253.21 67-162/88-224 g LV Mass Index: 121.15 43-95/49-115 g/m2 LVOT Diam: 2.70 3.0+(-)1.3 cm 2D Systolic Function EF 4C: 65.60 >55% EF 2C: 65.40 >55% EF BiP: 65.00 >55% Mitral Valve MV Pk E: 0.70 MV PK A: 0.42 MV Decel Time: 148.00 E/A: 1.70 E'Lateral: 14.50 E'Medial: 8.59 E/E' Med: 8.20 E/E' Lat: 4.80 PHT: 43.00 MVA PHT: 5.12 Decel Nye: 4.76 Aortic Valve AoV Pk Mateo: 1.41 AoV Mn Mateo: 0.97 AoV VTI: 0.26 AoV Pk Grad: 8.00 Aov Mn Grad: 4.00 INOCENTE Cont.VTI: 4.43 LVOT LVOT Pk Mateo: 1.17 LVOT Mn Mateo: 0.80 LVOT VTI: 0.20 LVOT Pk Grad: 5.00 LVOT Mn Grad: 3.00 LVOT Diam: 2.70 LVOT Area: 5.73 Diastolic Function MV Pk E: 0.70 MV Pk A: 0.42 E/A: 1.70 E'Medial: 8.59 E/E' Med: 8.20 E' Laterial: 14.50 E/E' Lat: 4.80 Right Ventricle TAPSE (mm): 21.90 TVS' Mateo: 12.30 Tricuspid Valve RA Press: 3.00 Great Vessels Aorta Sinus of Valsalva: 3.20 2.0-3.5 cm Ao Asc: 2.70 2.1-3.4 cm Pulmonary Veins Pulm Vein S/D 0.80 Pulmonary Valve PV Pk Mateo: 1.25 Peak PV Grad: 6.00 Updated in Other Vendor System with Status of Final David Jimenez MD electronically signed on 08/28/2025 1:14:45 PM with status of Final
[2025-08-28 08:00] VITALS: BP 117/62; PULSE 56; TEMP 36.7; O2SAT 96
[2025-08-28] MEDS: methADONE HCl 20 MG/2 ML ORAL.CONC 30 MG PO (08:11)
[2025-08-28] MEDS: Nicotine 21 MG PATCH.TD24 TRANSDERMA (08:12)
[2025-08-28] MEDS: buPROPion HCl XL 150 MG TAB.ER.24H PO (08:12)
--- NOTE | 2025-08-28 11:24 | P.PNPSI_ITS ---
Subjective Subjective Date of Service: 08/28/25 Reason For Visit: SI Subjective Notes: Conditional Voluntary Healthcare Proxy: No Guardianship: No Medical Problems Affecting Mental Status: No Interim History: Pt reports feeling some improvement. Asks to continue Baclofen which will be ordered. No SI,HI, AH, VH. Increased visability in milieu. Plans recovery coaching and out patient therapy and psychiatry referrals when discharged. Denies current medical issues of concern. Medication Compliance: Yes Side effects from medications: No Attending Groups: Intermittent Review of Systems Acute medical concerns: No Medical Review of Systems: unchanged Review of Systems Review of Systems I am feeling better. Mental Status Exam Mental Status Exam Patient Appearance: Appropriate Patient Orientation: Person, Place, Time and Situation Level of Consciousness: Alert Patient Behavior: Talkative and Good Eye Contact Mood Description: Constricted Affect Description: Constricted Patient Cognition Impaired: No Ability to Follow Directions: Good Speech Pattern: Spontaneous Speech Memory Description: Intact Hallucinations: None Delusions: Not Present Thought Process: Intact Thought Content: positive for Intact, positive for Circumstantial and positive for Suicidal Ideation (denies) Judgement: Fair Diagnostics Vital Signs (24Hr): Vital Signs - 24 hr 08/27/25 11:28 08/27/25 12:47 08/27/25 16:04 Temperature 98 F 97.9 F Pulse Rate 98 87 Respiratory Rate 18 18 Blood Pressure 138/92 H 137/85 120/71 Pulse Oximetry 98 98 Oxygen Delivery Method Room Air Room Air 08/27/25 20:00 08/27/25 20:22 08/28/25 08:00 Temperature 98.8 F 98.1 F Pulse Rate 70 56 Respiratory Rate 18 Blood Pressure 131/76 131/76 117/62 Pulse Oximetry 98 96 Oxygen Delivery Method Room Air Room Air BMI result Body Mass Index 26.1 Labs 08/23/25 22:26 08/27/25 08:25 Labs: Laboratory Results - last 48 hr 08/27/25 08:25 Sodium 142 Potassium 4.4 Chloride 102 Carbon Dioxide 29 Anion Gap 15 BUN 11 Creatinine 1.03 Estim Creat Clear Calc 110.9 Estimated GFR > 60 Random Glucose 94 Estimat Average Glucose 103 Hemoglobin A1c % 5.2 Calcium 9.9 Magnesium 2.3 Total Bilirubin 1.1 H AST 23 ALT 17 Alkaline Phosphatase 85 Total Protein 7.8 Albumin 4.7 Triglycerides 83 Cholesterol 182 LDL Cholesterol, Calc 134 H HDL Cholesterol 32 L Vitamin B12 775 Folate 10.0 TSH 1.29 Free T4 1.17 Medications Medications Current Medications Acetaminophen (Acetaminophen 325 Mg Tablet) 650 mg PO Q6H PRN PRN Reason: Headache/Pain, Scale 1-10 Last Admin: 08/27/25 20:25 Dose: 650 mg Al Hydroxide/Mg Hydroxide (Magnesium Hydrox/Alum Hydrox 30 Ml Oral.Susp) 30 ml PO Q6H PRN PRN Reason: Heartburn/Nausea Benzocaine (Throat Lozenge, Medicated Lozenge) 1 lozenge MUCOUS MEM Q2H PRN PRN Reason: Sore Throat Bupropion HCl (Bupropion Hcl Xl 150 Mg Tab.Er.24h) 150 mg PO DAILY SUDHIR Last Admin: 08/28/25 08:12 Dose: 150 mg Clonidine HCl (Clonidine Hcl 0.1 Mg Tablet) 0.1 mg PO TID PRN; Protocol PRN Reason: severe anxiety Last Admin: 08/27/25 20:22 Dose: 0.1 mg Guaifenesin (Guaifenesin 200 Mg/10 Ml 10 Ml Liquid) 10 ml PO Q4H PRN PRN Reason: Cough Hydroxyzine HCl (Hydroxyzine Hcl 25 Mg Tablet) 25 mg PO Q6H PRN PRN Reason: mild anxiety Last Admin: 08/26/25 20:05 Dose: 25 mg Lorazepam (Lorazepam 1 Mg Tablet) 2 mg PO Q2H PRN PRN Reason: CIWA 12-15 Last Admin: 08/27/25 20:22 Dose: 2 mg Lorazepam (Lorazepam 1 Mg Tablet) 1 mg PO Q2H PRN PRN Reason: CIWA 8-11 Last Admin: 08/27/25 23:42 Dose: 1 mg Magnesium Hydroxide (Milk Of Magnesia 30 Ml Oral.Susp) 30 ml PO DAILY PRN PRN Reason: Constipation Methadone HCl (Methadone Hcl 20 Mg/2 Ml Oral.Conc) 30 mg PO DAILY SUDHIR Last Admin: 08/28/25 08:11 Dose: 30 mg Nicotine (Nicotine 21 Mg Patch.Td24) 21 mg TRANSDERMA DAILY PRN PRN Reason: nicotine craving Last Admin: 08/28/25 08:12 Dose: 21 mg Nicotine Polacrilex (Nicotine Polacrilex 2 Mg Gum) 2 mg BUCCAL Q2H PRN PRN Reason: Nicotine Cravings Last Admin: 08/27/25 23:44 Dose: 2 mg Olanzapine (Olanzapine 5 Mg Tablet) 5 mg PO BID PRN PRN Reason: agitation Last Admin: 08/27/25 23:42 Dose: 5 mg Ondansetron HCl (Ondansetron Odt 4 Mg Tab.Rapdis) 4 mg TRANSLINGU Q6H PRN PRN Reason: Nausea and Vomiting Thiamine HCl (Thiamine Hcl 100 Mg Tablet) 100 mg PO DAILY SUDHIR Last Admin: 08/28/25 08:12 Dose: 100 mg Trazodone HCl (Trazodone Hcl 50 Mg Tablet) 50 mg PO BEDTIME MRX1 PRN PRN Reason: Insomnia Last Admin: 08/27/25 23:42 Dose: 50 mg Allergies Allergies Allergy/AdvReac Type Severity Reaction Status Date / Time No Known Allergies Allergy Verified 08/23/25 22:09 Assessment & Plan Assessment & Plan (1) Depressive disorder: Status: Acute Code(s): F32.A - Depression, unspecified (2) Alcohol dependence: Status: Acute Code(s): F10.20 - Alcohol dependence, uncomplicated (3) Cocaine use disorder: Status: Acute Code(s): F14.10 - Cocaine abuse, uncomplicated (4) Alcohol use disorder, moderate, dependence: Status: Acute Code(s): F10.20 - Alcohol dependence, uncomplicated (5) PTSD (post-traumatic stress disorder): Status: Acute Code(s): F43.10 - Post-traumatic stress disorder, unspecified Plan Pt is a 35 y/o, single, Serbian Speaking, male with hx of depression, anxiety and polysubstance used disorders who is previously unknown to the CARE Team. On 08/24/25 patient arrived at the ED via ambulance with a complaint of vague SI with no plan brought on by the Holidays and seasonal depression, as well as claims no one wants him around, and polysubstance use. Pt has been medically cleared and is being assessed by the CARE Team to determine appropriate treatment which patient was found to be appropriate for Psychoatric admission to manage his depression and anxiety symptoms as well as address any associated symptoms from substance use. Hospital course: 08/26/25: Discussed with patient regarding antidepressants, patient was reluctant to start on antidepressant due to history of having sexual drive decrease as a side effects from Effexor. However, he was prescribed Wellbutrin in the past with good effect. Therefore we will start him on Wellbutrin XL 150 mg daily in the morning. Indication and possible side effects review with patient. Clonidine 0.1 t.i.d. PRNs for severe anxiety. Hydroxyzine 25 mg for anxiety. On protocol for CIWA withdrawal with Ativan PRNs. Methadone 30 mg daily. Patient would like to see the addiction team regarding his methadone dose. Zofran PRNs nauseous and vomiting. Robitussin p.r.n. for congestion. Zyprexa 5 mg b.i.d. PRNs for severe agitation. Trazodone p.r.n. with a repeat dose for insomnia. 08/28/25: Pt reports feeling some improvement. Asks to continue Baclofen which will be ordered. No SI,HI, AH, VH. Increased visability in milieu. Plans recovery coaching and out patient therapy and psychiatry referrals when discharged. Denies current medical issues of concern. Plan Patient on 15 minute checks for safety. Admitted to . CV. Work with treatment team to do collateral for CSS/CCS if possible for aftercare. Refer to patient to special education curriculum specialist: Pending Dialogue caustic and discharge planning. U tox positive for opiate, Suboxone, fentanyl, cocaine, and marijuana. BAL was 18 on arrival on 08/23/25. U/A negative.EKG: Normal sinus rhythm with sinus arrhythmia. Right atrial enlargement. Borderline ECG. When compared with ECG of 23-Jun-2023 09:43, No significant change was found Reason for continued inpatient stay Substantial Risk for: rapid decompensation Time Spent With Patient Time: Total time managing care of this patient today ____ minutes.
--- NOTE | 2025-08-28 14:28 | HO.ADDICT_ITS ---
History of Present Illness Date of Service: 08/28/2025 Chief Complaint: SI Reason for Consult: RO HPI Narrative: Patient is a 35 year old male with history of OUD, AUD, and MDD admitted to [facility] with worsening depression. He reports that he had been in recovery for approx 3 years until 3 months ago when he began to use opiates and drink alcohol. States he had been using approx a bundle IV QD Also reports drinking approx a litre of vodka daily. He was initiated on methadone 30mg while in the ED to address withdrawal sx, and states this dose has been appropriate. He was also started on lorazepam sx triggered protocol for alcohol withdrawal and feels sx have been managed well. Discussed history with RO He does not wish to remain on methadone Previously prescribed buprenorhine. Sublocade 05/2025. Missed inejction scheduled for July. States that he does not care for oral suboxone as it makes him very nauseous. Goal is to return to Sublocade. Patient at [facility]. In terms of current withdrawal: reporting muscle cramps/spasm, mild anxiety Past Psychiatric History: Psychiatric admission at [facility] about 3 days ago. On 08/26: report last admission was more than a year ago Other psychiatric admissions but several years ago No current med provider or therapist. No PCP. Medication trials: Wellbutrin, Zoloft, Remeron, Trileptal, atomoxetine Review of Systems Constitutional: Reports as per HPI and Reports no additional constitutional complaints Diagnostics Vital Signs (24Hr): Vital Signs - 24 hr 08/27/25 16:04 08/27/25 20:00 08/27/25 20:22 Temperature 97.9 F 98.8 F Pulse Rate 87 70 Respiratory Rate 18 18 Blood Pressure 120/71 131/76 131/76 Pulse Oximetry 98 98 Oxygen Delivery Method Room Air Room Air 08/28/25 08:00 Temperature 98.1 F Pulse Rate 56 Respiratory Rate Blood Pressure 117/62 Pulse Oximetry 96 Oxygen Delivery Method Room Air BMI result Body Mass Index 26.1 Labs 08/23/25 22:26 08/27/25 08:25 Labs: Laboratory Results - last 48 hr 08/27/25 08:25 Sodium 142 Potassium 4.4 Chloride 102 Carbon Dioxide 29 Anion Gap 15 BUN 11 Creatinine 1.03 Estim Creat Clear Calc 110.9 Estimated GFR > 60 Random Glucose 94 Estimat Average Glucose 103 Hemoglobin A1c % 5.2 Calcium 9.9 Magnesium 2.3 Total Bilirubin 1.1 H AST 23 ALT 17 Alkaline Phosphatase 85 Total Protein 7.8 Albumin 4.7 Triglycerides 83 Cholesterol 182 LDL Cholesterol, Calc 134 H HDL Cholesterol 32 L Vitamin B12 775 Folate 10.0 TSH 1.29 Free T4 1.17 Mental Status Exam Mental Status Exam Level of Consciousness: Awake, Appropriate and Alert Patient Behavior: Appropriate and Cooperative Affect Description: Calm Speech Pattern: Clear Thought Process: Intact Thought Content: positive for Intact Judgement: Good Medications Medications Current Medications Acetaminophen (Acetaminophen 325 Mg Tablet) 650 mg PO Q6H PRN PRN Reason: Headache/Pain, Scale 1-10 Last Admin: 08/27/25 20:25 Dose: 650 mg Al Hydroxide/Mg Hydroxide (Magnesium Hydrox/Alum Hydrox 30 Ml Oral.Susp) 30 ml PO Q6H PRN PRN Reason: Heartburn/Nausea Benzocaine (Throat Lozenge, Medicated Lozenge) 1 lozenge MUCOUS MEM Q2H PRN PRN Reason: Sore Throat Bupropion HCl (Bupropion Hcl Xl 150 Mg Tab.Er.24h) 150 mg PO DAILY [facility] Last Admin: 08/28/25 08:12 Dose: 150 mg Clonidine HCl (Clonidine Hcl 0.1 Mg Tablet) 0.1 mg PO TID PRN; Protocol PRN Reason: severe anxiety Last Admin: 08/27/25 20:22 Dose: 0.1 mg Guaifenesin (Guaifenesin 200 Mg/10 Ml 10 Ml Liquid) 10 ml PO Q4H PRN PRN Reason: Cough Hydroxyzine HCl (Hydroxyzine Hcl 25 Mg Tablet) 25 mg PO Q6H PRN PRN Reason: mild anxiety Last Admin: 08/26/25 20:05 Dose: 25 mg Lorazepam (Lorazepam 1 Mg Tablet) 2 mg PO Q2H PRN PRN Reason: CIWA 12-15 Last Admin: 08/27/25 20:22 Dose: 2 mg Lorazepam (Lorazepam 1 Mg Tablet) 1 mg PO Q2H PRN PRN Reason: CIWA 8-11 Last Admin: 08/27/25 23:42 Dose: 1 mg Magnesium Hydroxide (Milk Of Magnesia 30 Ml Oral.Susp) 30 ml PO DAILY PRN PRN Reason: Constipation Methadone HCl (Methadone Hcl 20 Mg/2 Ml Oral.Conc) 30 mg PO DAILY [facility] Last Admin: 08/28/25 08:11 Dose: 30 mg Nicotine (Nicotine 21 Mg Patch.Td24) 21 mg TRANSDERMA DAILY PRN PRN Reason: nicotine craving Last Admin: 08/28/25 08:12 Dose: 21 mg Nicotine Polacrilex (Nicotine Polacrilex 2 Mg Gum) 2 mg BUCCAL Q2H PRN PRN Reason: Nicotine Cravings Last Admin: 08/27/25 23:44 Dose: 2 mg Olanzapine (Olanzapine 5 Mg Tablet) 5 mg PO BID PRN PRN Reason: agitation Last Admin: 08/27/25 23:42 Dose: 5 mg Ondansetron HCl (Ondansetron Odt 4 Mg Tab.Rapdis) 4 mg TRANSLINGU Q6H PRN PRN Reason: Nausea and Vomiting Thiamine HCl (Thiamine Hcl 100 Mg Tablet) 100 mg PO DAILY [facility] Last Admin: 08/28/25 08:12 Dose: 100 mg Trazodone HCl (Trazodone Hcl 50 Mg Tablet) 50 mg PO BEDTIME MRX1 PRN PRN Reason: Insomnia Last Admin: 08/27/25 23:42 Dose: 50 mg Allergies Allergies Allergy/AdvReac Type Severity Reaction Status Date / Time No Known Allergies Allergy Verified 08/23/25 22:09 Assessment & Plan Assessment & Plan (1) Opioid use disorder: Status: Acute Code(s): F11.90 - Opioid use, unspecified, uncomplicated Assessment and Plan: * plan to transition to buprenorphine. will follow up on Tuesday (08/30), alcohol withdrawal should be completed by then * baclofen for muscle cramps/spasms PRN (2) Alcohol use disorder, moderate, dependence: Status: Acute Code(s): F10.20 - Alcohol dependence, uncomplicated Assessment and Plan: * withdrawal improving -PRN lorazepam Total time managing care of this patient today _40___ minutes. PMFSH Past Medical History Medical History Cocaine use disorder Alcohol dependence PTSD (post-traumatic stress disorder) MDD (major depressive disorder), recurrent severe, without psychosis Social History Social History Household Members: Other Household Members Other:: father Housing: House Do you presently have visiting nurse or other home services: No Alcohol intake: current Alcohol intake frequency: other Alcohol type: hard liquor Patient Tobacco Use Status: Current everyday Tobacco user Tobacco use type: Cigarette Cigarette Packs Per Day: 2 Cigarettes Per Day: 5 Smoked in Last 30 Days: Yes e-Cigarette/Vaping Use: Currently Using Frequency of e-Cigarette/Vaping Use: daily Patient Interested in Nicotine Replacement: Yes Patient Given Instructions on How to Stop Smoking: No Second Hand Smoke Exposure: No Use of substances other than those prescribed or required for medical reasons: Yes Substance Use Type: Heroin, Inhalants and Marijuana Last Used Substance: Just Prior to Admission Currently Displaying Signs/Symptoms of Drug Intoxication Withdrawal: No Any prior treatment program specific to substance use: Yes (reports he's been to detox 8 times) Have you been hit, kicked, punched, or otherwise hurt by someone within the past year? If so, by whom?: No Do you feel safe in your current relationship?: No Current Relationship Is there a partner from a previous relationship who is making you feel unsafe now?: No Are you made to feel afraid or neglected: No Advance Directives: No Advance Directives Information Provided: No Do you have thoughts of harming others: None Do you have a plan to hurt others: No Plan Recently lost weight without trying: No Eating poorly because of decreased appetite: No Nutrition Risks: No Nutritional Risk Poor oral hygiene: No service: No Sexual orientation: Straight/Heterosexual
[2025-08-28 15:49] VITALS: BP 140/89
[2025-08-29] VITALS (7 sets, daily range): BP systolic 115–184; BP diastolic 59–77; PULSE 68–87; RESP 14–18; TEMP 36.6–37; O2SAT 96–98
[2025-08-29] MEDS: methADONE HCl 20 MG/2 ML ORAL.CONC 30 MG PO (07:38)
[2025-08-29] MEDS: Nicotine 21 MG PATCH.TD24 TRANSDERMA (08:28)
[2025-08-29] MEDS: buPROPion HCl XL 150 MG TAB.ER.24H PO (08:30)
--- NOTE | 2025-08-29 15:21 | P.PNPSI_ITS ---
Subjective Subjective Date of Service: 08/29/25 Reason For Visit: SI Subjective Notes: [place] Warning and Conditional Voluntary Healthcare Proxy: No Guardianship: No Medical Problems Affecting Mental Status: No Interim History: Medical record and nursing notes reviewed; case discussed during rounds with team/nursing staff, and met with patient for supportive therapy/psychoeducation, as well as medication management. Patient is future oriented. Met with addiction team and have plan to switch from MTD to Sublocate which he is happy about. Denies alcohol W/D symptoms. Report missing being with family during holidays and missing his brother's green party. Medication compliant but report dry mouth. Agree to get some artificial saliva spay. Will discontinue CIWA protocol with Ativan PRN. Medication Compliance: No Side effects from medications: No Attending Groups: Yes Review of Systems Acute medical concerns: No Medical Review of Systems: unchanged Review of Systems Review of Systems Constitutional: Denies fatigue and Denies fever(s) Cardiovascular: Denies chest pain and Denies dyspnea Respiratory: Denies dyspnea Gastrointestinal: Denies abdominal pain Psychiatric: denies suicidal ideation Endocrine: Denies fatigue Mental Status Exam Mental Status Exam Narrative: Patient is A+Ox3, wearing casual attire, less anxious, depressed with no symptoms of W/D from FEN/ Heroin/alcohol. Speech is WNL, no manic behavior. Fair eye contact. Thought process is organized and linear. Thought content is WNL, with treatment, no SI/SIB/HI/AVH. Fair to poor insight of illness and judgment. Diagnostics Vital Signs (24Hr): Vital Signs - 24 hr 08/28/25 15:49 08/29/25 08:00 08/29/25 14:00 Temperature 97.9 F 98.2 F Pulse Rate 73 83 Respiratory Rate 18 Blood Pressure 140/89 H 144/77 H 184/76 H Pulse Oximetry 97 96 Oxygen Delivery Method Room Air Room Air 08/29/25 14:02 Temperature Pulse Rate Respiratory Rate Blood Pressure 184/76 H Pulse Oximetry Oxygen Delivery Method BMI result Body Mass Index 26.1 Labs 08/23/25 22:26 08/27/25 08:25 Medications Medications Current Medications Acetaminophen (Acetaminophen 325 Mg Tablet) 650 mg PO Q6H PRN PRN Reason: Headache/Pain, Scale 1-10 Last Admin: 08/27/25 20:25 Dose: 650 mg Al Hydroxide/Mg Hydroxide (Magnesium Hydrox/Alum Hydrox 30 Ml Oral.Susp) 30 ml PO Q6H PRN PRN Reason: Heartburn/Nausea Baclofen (Baclofen 10 Mg Tablet) 10 mg PO TID PRN PRN Reason: Muscle Spasm Last Admin: 08/29/25 08:30 Dose: 10 mg Benzocaine (Throat Lozenge, Medicated Lozenge) 1 lozenge MUCOUS MEM Q2H PRN PRN Reason: Sore Throat Bupropion HCl (Bupropion Hcl Xl 150 Mg Tab.Er.24h) 150 mg PO DAILY [facility] Last Admin: 08/29/25 08:30 Dose: 150 mg Clonidine HCl (Clonidine Hcl 0.1 Mg Tablet) 0.1 mg PO TID PRN; Protocol PRN Reason: severe anxiety Last Admin: 08/29/25 14:02 Dose: 0.1 mg Guaifenesin (Guaifenesin 200 Mg/10 Ml 10 Ml Liquid) 10 ml PO Q4H PRN PRN Reason: Cough Hydroxyzine HCl (Hydroxyzine Hcl 25 Mg Tablet) 25 mg PO Q6H PRN PRN Reason: mild anxiety Last Admin: 08/26/25 20:05 Dose: 25 mg Lorazepam (Lorazepam 1 Mg Tablet) 2 mg PO Q2H PRN PRN Reason: CIWA 12-15 Last Admin: 08/27/25 20:22 Dose: 2 mg Lorazepam (Lorazepam 1 Mg Tablet) 1 mg PO Q2H PRN PRN Reason: CIWA 8-11 Last Admin: 08/29/25 14:01 Dose: 1 mg Magnesium Hydroxide (Milk Of Magnesia 30 Ml Oral.Susp) 30 ml PO DAILY PRN PRN Reason: Constipation Methadone HCl (Methadone Hcl 20 Mg/2 Ml Oral.Conc) 30 mg PO DAILY [facility] Last Admin: 08/29/25 07:38 Dose: 30 mg Nicotine (Nicotine 21 Mg Patch.Td24) 21 mg TRANSDERMA DAILY PRN PRN Reason: nicotine craving Last Admin: 08/29/25 08:28 Dose: 21 mg Nicotine Polacrilex (Nicotine Polacrilex 2 Mg Gum) 2 mg BUCCAL Q2H PRN PRN Reason: Nicotine Cravings Last Admin: 08/29/25 11:53 Dose: 2 mg Olanzapine (Olanzapine 5 Mg Tablet) 5 mg PO BID PRN PRN Reason: agitation Last Admin: 08/27/25 23:42 Dose: 5 mg Ondansetron HCl (Ondansetron Odt 4 Mg Tab.Rapdis) 4 mg TRANSLINGU Q6H PRN PRN Reason: Nausea and Vomiting Thiamine HCl (Thiamine Hcl 100 Mg Tablet) 100 mg PO DAILY [facility] Last Admin: 08/29/25 08:30 Dose: 100 mg Trazodone HCl (Trazodone Hcl 50 Mg Tablet) 50 mg PO BEDTIME MRX1 PRN PRN Reason: Insomnia Last Admin: 08/29/25 02:23 Dose: 50 mg Allergies Allergies Allergy/AdvReac Type Severity Reaction Status Date / Time No Known Allergies Allergy Verified 08/23/25 22:09 Assessment & Plan Assessment & Plan (1) Opioid use disorder: Status: Acute Code(s): F11.90 - Opioid use, unspecified, uncomplicated Assessment and Plan: * plan to transition to buprenorphine. will follow up on Tuesday (08/30), alcohol withdrawal should be completed by then * baclofen for muscle cramps/spasms PRN (2) Alcohol use disorder, moderate, dependence: Status: Acute Code(s): F10.20 - Alcohol dependence, uncomplicated Assessment and Plan: * withdrawal improving -PRN lorazepam Plan 08/29/25: Patient is future oriented. Met with addiction team yesterday and have plan to switch from MTD to Sublocate which he is happy about. Denies alcohol W/D symptoms. Report missing being with family during holidays and missing his brother's green party. Medication compliant but report dry mouth. Agree to get some artificial saliva spay. Will discontinue CIWA protocol with Ativan PRN. Patient educated on: diagnosis, medication risk/benefits, substance abuse and therapeutic strategies Informed Consent: understands and further education needed Reason for continued inpatient stay Substantial Risk for: med/psych decompensation Time Spent With Patient Time: Total time managing care of this patient today ____ minutes.
[2025-08-30] MEDS: Nicotine 21 MG PATCH.TD24 TRANSDERMA (06:51)
[2025-08-30] MEDS: Dry Mouth Spray 60 ML SPRAY 1 SPRAY MUCOUS MEM (06:53)
[2025-08-30 06:58] VITALS: BP 118/72
[2025-08-30 07:58] VITALS: BP 118/72; PULSE 73; RESP 18; TEMP 36.8; O2SAT 98
[2025-08-30] MEDS: methADONE HCl 20 MG/2 ML ORAL.CONC 30 MG PO (08:01)
[2025-08-30] MEDS: buPROPion HCl XL 150 MG TAB.ER.24H PO (08:41)
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
--- NOTE | 2025-08-30 11:21 | HO.ADDICTPRO ---
Subjective Subjective Date of Service: 08/30/25 Reason For Visit: SI Interim History: Patient seen in follow up for OUD and AUD CIWA and lorazepam taper d/c no new complaints. reviewed plan with patient on transition and dosing. questions answered. he reports baclofen has been helpful with muscle cramping. Review of Systems Acute medical concerns: No Review of Systems Constitutional: Reports as per HPI and Reports no additional constitutional complaints Mental Status Exam Mental Status Exam Patient Appearance: Well Grooomed and Appropriate Level of Consciousness: Awake, Appropriate and Alert Patient Behavior: Appropriate and Cooperative Affect Description: Calm and Anxious Speech Pattern: Clear Thought Process: Intact Thought Content: positive for Intact Judgement: Good Diagnostics Vital Signs (24Hr): Vital Signs - 24 hr 08/29/25 14:00 08/29/25 14:02 08/29/25 16:00 Temperature 98.2 F Pulse Rate 83 68 Respiratory Rate 18 14 Blood Pressure 184/76 H 184/76 H 129/77 Pulse Oximetry 96 Oxygen Delivery Method Room Air 08/29/25 20:00 08/29/25 23:35 08/29/25 23:37 Temperature 98.4 F 98.6 F Pulse Rate 87 74 Respiratory Rate Blood Pressure 139/60 115/59 L 115/59 L Pulse Oximetry 97 98 Oxygen Delivery Method Room Air Room Air 08/30/25 06:58 08/30/25 07:58 Temperature 98.2 F Pulse Rate 73 Respiratory Rate 18 Blood Pressure 118/72 118/72 Pulse Oximetry 98 Oxygen Delivery Method Room Air BMI result Body Mass Index 26.1 Labs 08/23/25 22:26 08/27/25 08:25 Medications Medications Current Medications Acetaminophen (Acetaminophen 325 Mg Tablet) 650 mg PO Q6H PRN PRN Reason: Headache/Pain, Scale 1-10 Last Admin: 08/29/25 21:14 Dose: 650 mg Al Hydroxide/Mg Hydroxide (Magnesium Hydrox/Alum Hydrox 30 Ml Oral.Susp) 30 ml PO Q6H PRN PRN Reason: Heartburn/Nausea Baclofen (Baclofen 10 Mg Tablet) 10 mg PO TID PRN PRN Reason: Muscle Spasm Last Admin: 08/29/25 21:15 Dose: 10 mg Benzocaine (Throat Lozenge, Medicated Lozenge) 1 lozenge MUCOUS MEM Q2H PRN PRN Reason: Sore Throat Buprenorphine HCl (Buprenorphine Hcl 2 Mg Tab.Subl) 0.5 mg SUBLINGUAL Q3H [facility] Stop: 08/31/25 06:01 Buprenorphine HCl (Buprenorphine Hcl 2 Mg Tab.Subl) 1 mg SUBLINGUAL Q3H [facility] Stop: 09/01/25 06:01 Buprenorphine HCl (Buprenorphine Hcl 8 Mg Tab.Subl) 8 mg SUBLINGUAL BID@0900,1700 [facility] Bupropion HCl (Bupropion Hcl Xl 150 Mg Tab.Er.24h) 150 mg PO DAILY [facility] Last Admin: 08/30/25 08:41 Dose: 150 mg Clonidine HCl (Clonidine Hcl 0.1 Mg Tablet) 0.1 mg PO TID PRN; Protocol PRN Reason: severe anxiety Last Admin: 08/30/25 06:58 Dose: 0.1 mg Guaifenesin (Guaifenesin 200 Mg/10 Ml 10 Ml Liquid) 10 ml PO Q4H PRN PRN Reason: Cough Hydroxyzine HCl (Hydroxyzine Hcl 25 Mg Tablet) 25 mg PO Q6H PRN PRN Reason: mild anxiety Last Admin: 08/30/25 05:55 Dose: 25 mg Magnesium Hydroxide (Milk Of Magnesia 30 Ml Oral.Susp) 30 ml PO DAILY PRN PRN Reason: Constipation Methadone HCl (Methadone Hcl 20 Mg/2 Ml Oral.Conc) 30 mg PO DAILY@0800 [facility] Stop: 08/31/25 08:01 Nicotine (Nicotine 21 Mg Patch.Td24) 21 mg TRANSDERMA DAILY PRN PRN Reason: nicotine craving Last Admin: 08/30/25 06:51 Dose: 21 mg Nicotine Polacrilex (Nicotine Polacrilex Lozenge 4 Mg Lozenge) 4 mg BUCCAL Q2H PRN PRN Reason: Nicotine Cravings Nicotine Polacrilex (Nicotine Polacrilex Lozenge 4 Mg Lozenge) 4 mg BUCCAL Q2H PRN PRN Reason: Nicotine Cravings Olanzapine (Olanzapine 5 Mg Tablet) 5 mg PO BID PRN PRN Reason: agitation Last Admin: 08/29/25 21:15 Dose: 5 mg Olanzapine (Olanzapine 5 Mg Tablet) 5 mg PO BID [facility] Ondansetron HCl (Ondansetron Odt 4 Mg Tab.Rapdis) 4 mg TRANSLINGU Q6H PRN PRN Reason: Nausea and Vomiting Last Admin: 08/30/25 08:00 Dose: 4 mg Saliva Substitute (Dry Mouth [place] 60 Ml [place]) 1 spray MUCOUS MEM Q2H PRN PRN Reason: Dry Mouth Last Admin: 08/30/25 06:53 Dose: 1 spray Thiamine HCl (Thiamine Hcl 100 Mg Tablet) 100 mg PO DAILY [facility] Last Admin: 08/30/25 08:41 Dose: 100 mg Trazodone HCl (Trazodone Hcl 50 Mg Tablet) 50 mg PO BEDTIME MRX1 PRN PRN Reason: Insomnia Last Admin: 08/29/25 23:37 Dose: 50 mg Allergies Allergies Allergy/AdvReac Type Severity Reaction Status Date / Time No Known Allergies Allergy Verified 08/23/25 22:09 Assessment & Plan Assessment & Plan (1) Opioid use disorder: Status: Acute Code(s): F11.90 - Opioid use, unspecified, uncomplicated Assessment and Plan: 08/30 Day 1:Buprenorphine 0.5mg (1/4 tab) Q3H starting at noon --total of 7 doses (Regular methadone dose this AM) 08/31 Day 2: Buprenorphine 1mg (1/2 tab) Q3H starting at 9am --total of 8 doses (LAST DOSE OF METHADONE THIS DAY) 09/01 Day 3: Buprenorphine 8mg BID (9am and 5pm) --dosing can be adjusted based on patient preference Patient reminded and encouraged to continue taking comfort medications as needed--baclofen, clonidine, 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
[2025-08-30] MEDS: Nicotine Polacrilex Lozenge 4 MG LOZENGE BUCCAL ×3 (11:56→21:35)
[2025-08-30 20:00] VITALS: BP 156/84; PULSE 94; RESP 16; TEMP 36.8; O2SAT 98
[2025-08-30 21:16] VITALS: BP 156/89
[2025-08-31] MEDS: Nicotine Polacrilex Lozenge 4 MG LOZENGE BUCCAL ×6 (03:25→21:33)
[2025-08-31] MEDS: methADONE HCl 20 MG/2 ML ORAL.CONC 30 MG PO (07:48)
[2025-08-31 08:00] VITALS: BP 159/88; PULSE 65; TEMP 36.9; O2SAT 99
[2025-08-31] MEDS: Nicotine 21 MG PATCH.TD24 TRANSDERMA (09:00)
[2025-08-31] MEDS: buPROPion HCl XL 150 MG TAB.ER.24H PO (09:01)
[2025-08-31 09:12] VITALS: BP 145/72
[2025-08-31] MEDS: Dry Mouth Spray 60 ML SPRAY 1 SPRAY MUCOUS MEM (09:19)
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
--- NOTE | 2025-08-31 13:31 | MHC.RECOVRN ---
Tw met with pt in to offer support regarding Subutex initiation. Pt denies experiencing withdrawal symptoms at this time but does endorse anxiety related to receiving his last dose of methadone today. Pt was reassured his symptoms would be managed accordingly and was reminded of prn mediations available. ACS team to continue to follow and will check-in with pt tomorrow to assess for withdrawal and provide support.
[2025-08-31 15:21] VITALS: BP 140/95
[2025-08-31 19:38] VITALS: BP 137/83; PULSE 84; RESP 16; TEMP 36.8; O2SAT 98
[2025-09-01 00:13] VITALS: BP 132/68
[2025-09-01] MEDS: Nicotine Polacrilex Lozenge 4 MG LOZENGE BUCCAL ×7 (00:13→23:52)
[2025-09-01 08:00] VITALS: BP 161/85; PULSE 89; RESP 17; TEMP 36.8; O2SAT 97
[2025-09-01] MEDS: buPROPion HCl XL 150 MG TAB.ER.24H PO (08:34)
[2025-09-01] MEDS: Nicotine 21 MG PATCH.TD24 TRANSDERMA (08:57)
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
--- NOTE | 2025-09-01 12:38 | MHC.RECOVRN ---
Followed up with patient to assess buprenorphine initiation, as today was the patient?s first day without methadone. Pt reports feeling ?great? and expressed gratitude to the ACS team for assistance with transitioning to buprenorphine from methadone. He endorses mild nausea, which he reports is tolerable. States he is tolerating food without difficulty and denies other signs or symptoms of withdrawal. Patient was reminded of PRN medications available for symptom management. Plan: Methadone discontinued and Subutex 8 mg BID continued for OUD. ACS team remains available as needed for additional support
[2025-09-01] MEDS: Clotrimazole 1 % Cream 15 GM TUBE 1 APPL TOPICAL (14:09)
[2025-09-01 17:13] VITALS: BP 135/78
[2025-09-01 19:32] VITALS: BP 136/93; PULSE 113; TEMP 36.4; O2SAT 96
[2025-09-01 23:52] VITALS: BP 130/80
[2025-09-02 08:00] VITALS: BP 151/106; PULSE 75; RESP 17; TEMP 36.7; O2SAT 97
[2025-09-02] MEDS: Nicotine 21 MG PATCH.TD24 TRANSDERMA (08:33)
[2025-09-02] MEDS: Clotrimazole 1 % Cream 15 GM TUBE 1 APPL TOPICAL (08:33)
[2025-09-02] MEDS: buPROPion HCl XL 150 MG TAB.ER.24H PO (08:34)
[2025-09-02 09:11] VITALS: BP 152/76; PULSE 69; RESP 18; TEMP 37.2; O2SAT 96
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
--- NOTE | 2025-09-02 10:47 | PM.PSYDC ---
DS: Providers Provider Date of admission: 08/26/25 12:00 Date of discharge: 09/02/25 Primary care physician: None Physician Admitting clinician: Lyndsey Arechiga Attending physician on admission: Ancelmo Dumont Consults: 08/26/25 15:50 Addiction Medicine Provider Routine Consulting Provider: Addiction Covering Reason for consultation: polysubstance abuse 08/26/25 21:32 Addiction Medicine Provider Routine Consulting Provider: Addiction Covering Reason for consultation: On MTD 30mg. using FEN/Heroin/YUSUF/THC. Hx of Sublocate. Has provider been notified: No Attending physician on discharge: Ancelmo Dumont Discharging clinician: Pamela Borja DS: Diagnosis Discharge Diagnosis (1) Opioid use disorder: Status: Acute (2) Alcohol use disorder, moderate, dependence: Status: Acute DS: Medications Discharge Medications Home Medications: Previous Rx's ?Medication ?Instructions ?Recorded acetaminophen 325 mg tablet 650 mg (2 x 325 mg) PO Q6H PRN 09/02/25 Headache/Pain, Scale 1-10 #0 tabs buprenorphine HCl 8 mg sublingual 8 mg sublingual BID@0900,1700 #3 09/02/25 tablet tabs bupropion HCl 150 mg 24 hr tablet, 150 mg PO DAILY #30 tabs 09/02/25 extended release clonidine HCl 0.1 mg tablet 0.1 mg PO TID PRN severe anxiety 09/02/25 #90 tabs clotrimazole 1 % topical cream 1 appl topical BID #21 grams 09/02/25 cyclobenzaprine 10 mg tablet 10 mg PO BEDTIME PRN muscle spasm 09/02/25 #20 tabs naloxone 4 mg/actuation nasal 4 mg intranasal Q2M PRN opioid 09/02/25 spray (Narcan) overdose #2 ea nicotine (polacrilex) 4 mg gum 4 mg buccal Q2H PRN nicotine 09/02/25 (Nicorette) cravings #100 ea olanzapine 5 mg tablet 5 mg PO BID #90 tabs 09/02/25 thiamine mononitrate (vit B1) 100 100 mg PO DAILY #30 tabs 09/02/25 mg tablet Mental Status Exam Mental Status Exam Patient Appearance: Appropriate Patient Orientation: Person, Place, Time and Situation Level of Consciousness: Alert Patient Behavior: Talkative and Good Eye Contact Mood Description: Constricted Affect Description: Constricted Patient Cognition Impaired: No Ability to Follow Directions: Good Speech Pattern: Spontaneous Speech Memory Description: Intact Hallucinations: None Delusions: Not Present Thought Process: Intact Thought Content: positive for Intact, positive for Circumstantial and positive for Suicidal Ideation (denies) Judgement: Fair Data Data Completed and Pending Completed studies during hospitalization [Text1]: 08/27/25 08:25 Sodium 142 Potassium 4.4 Chloride 102 Carbon Dioxide 29 Anion Gap 15 BUN 11 Creatinine 1.03 Estim Creat Clear Calc 110.9 Estimated GFR > 60 Random Glucose 94 Estimat Average Glucose 103 Hemoglobin A1c % 5.2 Calcium 9.9 Magnesium 2.3 Total Bilirubin 1.1 H AST 23 ALT 17 Alkaline Phosphatase 85 Total Protein 7.8 Albumin 4.7 Triglycerides 83 Cholesterol 182 LDL Cholesterol, Calc 134 H HDL Cholesterol 32 L Vitamin B12 775 Folate 10.0 TSH 1.29 Free T4 1.17 Imaging Diagnostic Imaging Impressions Thoracic Spine X-Ray 08/30/25 13:01 IMPRESSION: Unremarkable lumbar spine exam. Unremarkable dorsal spine exam. Electronically signed by: Mynor Byrd MD 08/30/2025 01:54 PM EST RP Lumbar Spine X-Ray 08/30/25 13:05 IMPRESSION: Unremarkable lumbar spine exam. Unremarkable dorsal spine exam. Electronically signed by: Mynor Byrd MD 08/30/2025 01:54 PM EST RP DS: Summary Hospital Course Hospital Course: Per care team note: Pt is a 35 y/o, single, Khmer Speaking, male with hx of depression, anxiety and polysubstance used disorders who is previously unknown to the CARE Team. On 08/24/25 patient arrived at the ED via ambulance with a complaint of vague SI with no plan brought on by the Holidays and seasonal depression, as well as claims no one wants him around, and polysubstance use. Pt has been medically cleared and is being assessed by the CARE Team to determine appropriate treatment which patient was found to be appropriate for Psych[facility] admission to manage his depression and anxiety symptoms as well as address any associated symptoms from substance use. Pt has a hx of inpt hospitalization s, substance use, substance use tx, SI with no known attempts, and medication non-adherence with a current report of being off his psychiatric medications for approximately 1 year. Past documented hx of Cocaine use d/o, Alcohol use d/o, PTSD, and Major Depressive d/o. Legal issue: Denies On M5: Reason brought him to the hospital my birthday is this month. Thanksgiving and Beckie, everyone expected gift. Patient said that he did not get paid from work. And he feel very terrible. He thinks to himself what if I was not here, people may be happier . Reports SI with no plan no intention. Denies SIB/HI/AVH. No hx of SIB or suicide attempts. Reports currently no medications, reports history of depression anxiety. Denies bipolar. Reported that he is more seasonal depression as this is the time of the year has more severe symptoms. Medication trials: Reports he taking antidepressant Effexor before-being sexually side effects-decreased sex drive. However reports he was taking Wellbutrin XL which was helpful with his depression and agreed to start tomorrow. Also reviewed the medication list with patient. Family history: Reports his mom has bipolar and have TD from medications that she was taking. Reports his brother also having depression anxiety, was given Xanax which was very helpful until he is abusing to it. Patient reported that currently his brother is cleaned. Reports alcohol and drug use in the family. Reports he has at least 10 inpatient level of care admissions, with the last admission was a year [facility]. [place] [facility] [place] History of intermediate house in [place]. He good like to talk to the addiction team. Reports issue with sleep and appetite. Substance use: alcohol up to a litter of vodka daily. Last drink was last Tuesday before coming to ED. Heroin/FEN with last use at the same time as alcohol. Usually he use 1-3.5 bundles/daily IV. Reports smoking weed all day long. Currently on methadone maintenance 30 mg. But reported that he was on a taper. Need to verify. History of on Sublocade last received was couple of months ago. He smokes cigarettes has been reduced up to 6 cigarettes a day with vape. Currently have withdrawal symptoms from alcohol, he is on alcohol protocol. Medications were evaluated and adjusted. Detox was completed. Pt met with addiction medicine and began process of transition to Suboxone, Sublicade. Full milieu therapy was offered to pt during admission. Pt asked to discharge precipitously on 09/02, citing conflict with a peer on the unit. Appointments were called to him post discharge, and he did struggle with this, with several angry, threatening calls from pt and his mother. These were addressed individually and pt was reminded he had chosen an early discharge before aftercare was secured. He also made several calls due to his Suboxone prescription. He was given 4 films as insurance would not cover tablets which was learned after prescription was sent and an appt with [facility] on 09/04 11am, indicating that 4 films would be needed to cover his needs until this appointment. He verbalized understanding after return calls. Status at Discharge Functional status at discharge: independent ambulation Overall status at discharge: patient is back to baseline Time Spent with Patient Time attestation: Total time managing care of this patient today ____ minutes. Time spent: Greater than 30 minutes Discharge Plan Discharge Anticipated Discharge Date/Time: 09/02/25 13:00 Patient Disposition: Home, Self-Care Discharge Diagnosis: PTSD Recurrent Major Depression Alcohol Use Disorder Cocaine Use Disorder Opiate Use Disorder-Suboxone initiated Right Atrial Enlargement WPW Syndrome Referrals: [facility] [employer] (therapy) [Other] - 1 Week Referral Note: Referred for outpatient therapy SW will give follow-up call with appointments [facility] [employer] (psychiatry) [Other] - 1 Week Referral Note: Patient referred for psychiatric medication management services SW to call with hospital discharge appointment information. [facility] ([employer]) [Other] - 1 Week Referral Note: Patient referred to [employer] [facility] [employer] will reach out to you once they have been assigned to your case. [facility] [Other] - 09/04/25 11:00 am Referral Note: Initial Intake Appointment for Suboxone (MAT) management services Appointment in person on 09/04/25 @ 11:00 am. Physician,None [Primary Care Provider, Medical] - 1 Week Discharge Medications: New clonidine HCl 0.1 mg Tablet 0.1 mg PO TID PRN (Reason: severe anxiety) Qty: 90 0RF Protocol: Hold for SBP< HOLD for SBP < : 90 acetaminophen 325 mg Tablet 650 mg PO Q6H PRN (Reason: Headache/Pain, Scale 1-10) Qty: 0 0RF clotrimazole 1 % Cream 1 appl topical BID Qty: 21 0RF Protocol: Apply to: Apply to: Feet bupropion HCl 150 mg Tablet Extended Release 24 Hr 150 mg PO DAILY Qty: 30 0RF thiamine mononitrate (vit B1) 100 mg Tablet 100 mg PO DAILY Qty: 30 0RF naloxone [Narcan] 4 mg/actuation spray,non-aerosol 4 mg intranasal Q2M PRN (Reason: opioid overdose) Qty: 2 0RF Rx Instructions: spray 1 dose into ONE nostril; alternate nostrils w each dose until help arrives olanzapine 5 mg tablet 5 mg PO BID Qty: 90 0RF Rx Instructions: Take one tablet twice per day and one tablet daily as needed nicotine (polacrilex) [Nicorette] 4 mg gum 4 mg buccal Q2H PRN (Reason: nicotine cravings) Qty: 100 0RF cyclobenzaprine 10 mg tablet 10 mg PO BEDTIME PRN (Reason: muscle spasm) Qty: 20 0RF buprenorphine-naloxone [Suboxone] 8-2 mg film 1 film buccal BID Qty: 4 0RF No Action cyclobenzaprine 10 mg tablet 10 mg PO BEDTIME Discharge Orders: Discharge Order (Routine); Ordered 09/02/25 Ordered By: Pamela Borja Diet: Advance to usual diet Activity on Discharge: As tolerated Stand Alone Forms: Patient Portal Discharge page, Community Support Print Language: Khmer Care Plan Goals: Maintain mood and safe behaviors Take meds as prescribed Continue to pursue sobriety Practice coping skills Continue with out patient providers and reach out to them as needed Health Concerns: Mood and behavioral stability Sobriety Plan of Treatment: Follow up with PCP, out patient addiction and psychiatric providers with concerns Take medications as prescribed Assessment: Pt was interviewed prior to discharge and found to be fully oriented and without SI/HI. Pt has improved insight and judgment and wants to continue treatment. Pt is not in imminent risk of harm to self or others and has a safety plan that includes presenting to the closest ER or calling 911 if feeling unsafe. Pt has been observed closely by nursing and unit staff throughout admission. Pt has not engaged in any bad behaviors that suggest dangerousness to self or others and has demonstrated appropriate behaviors and impulse control. Discharge Date/Time: 09/02/25 11:55
--- NOTE | 2025-09-02 16:07 | PM.EVENT ---
Documented by User: Pamelahudson Borja APRN 09/03/25 10:26 Event Note Date of Service: 09/03/25 Event Note: Message from pt who discharged this afternoon. Insurance will not allow Suboxone tablets, only films. Prescription was resent to [facility]. Pharmacist reports this prescription is covered by insurance. Message left for pt at [phone] with details and to call with questions. 09/03/25: Message from pt. Angry that he was given #4 Suboxone. Asking for a month supply. Message left for pt as he as an appt on 09/04/25 with [facility] to continue his treatment, thus the reason only 4 films were sent, one for 09/02/25, two for 09/03/25 and one for 09/04/25 as appt is at 11am. Time Spent With Patient Time: Total time managing care of this patient today ____ minutes. Documented by User: Ancelmo Dumont MD 09/03/25 16:47 Event Note Date of Service: 09/03/25
== END 2025-09-02 11:55 | disposition home or self-care (01) | DRG 751 ==
LOC: HO.ED 08-26 12:07 → HO.PM5 08-26 12:37
PROVIDERS: Admitting Provider Nurse Practitioner Psychiatric/Mental Health; Emergency Provider Emergency Medicine Emergency Medical Services; Visit Provider Clinical Nurse Specialist Psychiatric/Mental Health, Adult
DX: F33.9 Major depressive disorder, recurrent, unspecified (principal); R45.851 Suicidal ideations; Z91.148 Patient's other noncompliance with medication regimen for other reason; F11.20 Opioid dependence, uncomplicated; F10.20 Alcohol dependence, uncomplicated; Y90.0 Blood alcohol level of less than 20 mg/100 ml; F14.10 Cocaine abuse, uncomplicated; F43.10 Post-traumatic stress disorder, unspecified; F41.9 Anxiety disorder, unspecified; F12.90 Cannabis use, unspecified, uncomplicated; G47.00 Insomnia, unspecified; I51.7 Cardiomegaly; I45.6 Pre-excitation syndrome; M54.6 Pain in thoracic spine; M54.50 Low back pain, unspecified; F17.210 Nicotine dependence, cigarettes, uncomplicated
CPT/HCPCS: 36415; 72072; 72100; 80053; 80061; 80307; 81003; 82607; 82746; 83036; 83690; 83735; 84439; 84443; 85025; 87637; 93005; 93306; 99285; J0571; S9485

== ENCOUNTER → 2025-08-26 07:51 | Outpatient (BNV) | payer MEDICAID, SELFPAY | PROVIDERS: Emergency Provider Emergency Medicine Emergency Medical Services; Visit Provider Internal Medicine Cardiovascular Disease | DX: I49.9 Cardiac arrhythmia, unspecified (principal); I51.7 Cardiomegaly | CPT/HCPCS: 93010 ==

== ENCOUNTER 2025-08-26 12:00 | Outpatient (BNV) | payer MEDICAID, SELFPAY | END 2025-08-28 07:00 | PROVIDERS: Admitting Provider Nurse Practitioner Psychiatric/Mental Health; Emergency Provider Emergency Medicine Emergency Medical Services; Visit Provider Internal Medicine Cardiovascular Disease | DX: I51.7 Cardiomegaly (principal) | CPT/HCPCS: 93306 ==

== ENCOUNTER 2025-08-26 12:00 | Outpatient (BNV) | payer MEDICAID, SELFPAY | END 2025-08-30 13:05 | PROVIDERS: Admitting Provider Nurse Practitioner Psychiatric/Mental Health; Emergency Provider Emergency Medicine Emergency Medical Services; Visit Provider Radiology Diagnostic Radiology | DX: M54.50 Low back pain, unspecified (principal); M54.6 Pain in thoracic spine; Z04.3 Encounter for examination and observation following other accident | CPT/HCPCS: 72072; 72100 ==

== ENCOUNTER → 2025-08-26 12:00 | Outpatient (BNV) | payer MEDICAID, SELFPAY | PROVIDERS: Admitting Provider Nurse Practitioner Psychiatric/Mental Health; Emergency Provider Emergency Medicine Emergency Medical Services; Visit Provider Nurse Practitioner Family | DX: I51.7 Cardiomegaly (principal); Z86.79 Personal history of other diseases of the circulatory system | CPT/HCPCS: 99221 ==

== ENCOUNTER → 2025-08-26 12:00 | Outpatient (BNV) | payer OTHER, SELFPAY | PROVIDERS: Admitting Provider Nurse Practitioner Psychiatric/Mental Health; Emergency Provider Emergency Medicine Emergency Medical Services; Visit Provider Psychiatry & Neurology Psychiatry | DX: F11.90 Opioid use, unspecified, uncomplicated (principal); F10.20 Alcohol dependence, uncomplicated | CPT/HCPCS: 99222 ==